=== PATIENT | female | born 1940 | race Caucasian/White ===

== ENCOUNTER 2017-07-16 12:48 | Inpatient (IN) | payer MEDICARE ==
[~2017-07-16] VITALS: Ht 157.5 cm; Wt 68.6 kg
[~2017-07-16 12:48] MED LIST: ACHYD1T PO; ALEN70TA2 PO; ALEN70TA47 PO; ASP81TEC PO; Acetaminophen PO; Aspirin PO; CARV3.122 PO; CEPH250C PO; CODE-54 PO; DOCU100C PO; ETHO250C PO; ETHO250C5 PO; HYDR-2890 PO; LISI20TA PO; OMEP-10 PO; OMEP20CA12 PO; PHOS250T5 PO; POLY17PO23 GT; RIVA10TA PO; SENN1TAB76 PO
--- OUTSIDE RECORDS SUMMARY | 2017-07-16 13:17 | XMS REPORT | Continuity of Care Document ---
Author Author [facility] Organization [facility] Address Unknown Phone Unavailable Allergies Active Description Code Type Severity Reaction Onset Reported/Identified Relationship to Patient Clinical Status Yes No Known Drug Allergies [id number] Drug Allergy Unknown N/A 12/30/2009 Yes bee stings bee stings Unknown N/A 05/18/2014 Medications There is no data. Problems Date Dx Coded Attending Type Code Diagnosis Diagnosed By 05/21/2014 SHERIN HARRY, DEYSI E Ot 273.8 05/21/2014 SHERIN HARRY, DEYSI E Ot 276.8 05/21/2014 SHERIN HARRY, DEYSI E Ot 285.9 05/21/2014 SHERIN HARRY, DEYSI E Ot 343.1 05/21/2014 SHERIN HARRY, DEYSI E Ot 401.9 05/21/2014 SHERIN HARRY, DEYSI E Ot 715.36 05/21/2014 SHERIN HARRY, DEYSI E Ot 733.00 05/21/2014 SHERIN HARRY, DEYSI E Ot 736.79 05/21/2014 SHERIN HARRY, DEYSI E Ot V54.89 05/21/2014 SHERIN HARRY, DEYSI E Ot V57.89 05/27/2014 SHERIN HARRY, DEYSI E Ot 273.8 05/27/2014 SHERIN HARRY, DEYSI E Ot 276.8 05/27/2014 SHERIN HARRY, DEYSI E Ot 285.9 05/27/2014 SHERIN HARRY, DEYSI E Ot 343.1 05/27/2014 SHERIN HARRY, DEYSI E Ot 401.9 05/27/2014 SHERIN HARRY, DEYSI E Ot 715.36 05/27/2014 SHERIN HARRY, DEYSI E Ot 733.00 05/27/2014 SHERIN HARRY, DEYSI E Ot 736.79 05/27/2014 SHERIN HARRY, DEYSI E Ot V54.89 05/27/2014 SHERIN HARRY, DEYSI E Ot V57.89 05/30/2014 SHERIN HARRY, DEYSI E Ot 273.8 05/30/2014 SHERIN HARRY, DEYSI E Ot 276.8 05/30/2014 SHERIN HARRY, DEYSI E Ot 285.9 05/30/2014 SHERIN HARRY, DEYSI E Ot 343.1 05/30/2014 SHERIN HARRY, DEYSI E Ot 401.9 05/30/2014 SHERIN HARRY, DEYSI E Ot 715.36 05/30/2014 SHERIN HARRY, DEYSI E Ot 729.81 05/30/2014 SHERIN HARRY, DEYSI E Ot 733.00 05/30/2014 SHERIN HARRY, DYESI E Ot 736.79 05/30/2014 SHERIN HARRY, DEYSI E Ot V54.89 05/30/2014 SHERIN HARRY, DEYSI E Ot V57.89 08/16/2014 SHERIN HARRY, DEYSI E Ot 138 08/16/2014 SHERIN HARRY, DEYSI E Ot 285.9 08/16/2014 SHERIN HARRY, DEYSI E Ot 343.9 08/16/2014 SHERIN HARRY, DEYSI E Ot 401.9 08/16/2014 SHERIN HARRY, DEYSI E Ot 728.87 08/16/2014 SHERIN HARRY, DEYSI E Ot 733.00 08/16/2014 SHERIN HARRY, DEYSI E Ot 736.81 08/16/2014 SHERIN HARRY, DEYSI E Ot 736.89 08/16/2014 SHERIN HARRY, DEYSI E Ot V43.65 08/16/2014 SHERIN HARRY, DEYSI E Ot V54.81 08/16/2014 SHERIN HARRY, DEYSI E Ot V57.89 09/02/2014 DE OLIVEIRA DO, TONNY W Ot V43.65 09/02/2014 DE OLIVEIRA DO, TONNY W Ot V54.81 09/02/2014 DE OLIVEIRA DO, TONNY W Ot V57.1 09/26/2014 DE OLIVEIRA DO, TONNY W Ot V43.65 09/26/2014 DE OLIVEIRA DO, TONNY W Ot V54.81 09/26/2014 DE OLIVEIRA DO, TONNY W Ot V57.1 Procedures There is no data. Results There is no data. Encounters ACCT No. Visit Date/Time Discharge Status Pt. Type Provider Facility Loc./Unit Complaint [id number] 09/26/2014 12:51:00 09/26/2014 14:36:00 DIS Outpatient DE OLIVEIRA DO, TONNY W [facility] REHAB [id number] 08/11/2014 15:13:00 08/16/2014 09:00:00 DIS Inpatient DEYSI DUFF MD [facility] IRF [id number] 05/18/2014 16:52:00 05/30/2014 10:30:00 DIS Inpatient DEYSI DUFF MD [facility] IRF [id number] 07/16/2017 12:48:00 ACT Inpatient DEYSI DUFF MD [facility] IRF RIGHT HIP FRACTURE
[2017-07-16 13:19] VITALS: BP 134/70
[2017-07-16] MEDS ORDERED: BETAMETHASONE/CLOTRIM CREAM (LOTRISONE) 45 GM TP PRN (13:30)
[2017-07-16 18:59] VITALS: BP 136/71
[2017-07-16] MEDS: ASPIRIN 325 MG (5 GR) TABLET PO SCH (21:32)
[2017-07-16] MEDS: SENNA W/DOCUSATE (SENOKOT S) TABLET PO SCH (21:33)
[2017-07-16] MEDS: MESALAMINE DR 400 MG (ASACOL/DELZICOL) TAB/CAPS PO SCH (21:34)
[2017-07-16] MEDS: HYDROcodone/APAP 5 MG/325 MG (LORTAB) TAB PO PRN (21:36)
[2017-07-17] MEDS ORDERED: ETHOSUXIMIDE 250 MG PO SCH (06:00)
[2017-07-17] MEDS: PANTOPRAZOLE 40 MG (PROTONIX) TAB PO SCH (06:04)
[2017-07-17 08:00] VITALS: BP 135/73
--- NOTE | 2017-07-17 08:22 | Consultation ---
History of Present Illness History of Present Illness Patient Consulted On(roni/time) 07/17/17 08:19 Time Seen by Provider: 08:20 History of Present Illness Patient fell at [facility] in the [facility]. Patient had a fracture of the right hip. Patient had right total hip surgery. Previous surgeries knee right, fracture femur the right hip previously Allergies and Home Medications Allergies Uncoded Allergies: bee stings (Allergy, Unknown, 05/18/14) Home Medications Docusate Sodium 100 Mg Capsule, 100 MG PO 1800, (Reported) Ethosuximide 250 Mg Capsule, 250 MG PO DAILY, (Reported) Hydrocodone Bit/Acetaminophen 1 Ea Tab, 1 EA PO Q4H PRN for PAIN Prescribed by: DEYSI DUFF on 08/15/14 1318 Lisinopril 20 Mg Tablet, 20 MG PO DAILY, (Reported) Omeprazole 20 Mg Capsule.dr, 20 MG PO DAILY, (Reported) Rivaroxaban 10 Mg Tablet, 10 MG PO DAILY@1800 Prescribed by: DEYSI DUFF on 08/15/14 1318 Senna 1 Ea Tablet, 1 EA PO BID Prescribed by: KERA HENSLEY on 08/11/14 210 [Acetaminophen] 500 MG TAB, 500 MG PO Q4H PRN for MILD PAIN Prescribed by: DEYSI DUFF on 08/15/14 1318 Patient Home Medication List Home Medication List Reviewed: Yes Past Bssxnhw-[id number]-Kaqkpp Hx Patient Social History Alcohol Use: Denies Use Recreational Drug Use: No Smoking Status: Never a Smoker Recent Foreign Travel: No Contact w/Someone Who Travel: No Recent Infectious Disease Expo: No Recent Hopitalizations: Yes ([place] TKR) Immunizations Up To Date PED Vaccines UTD: Yes Date of Pneumonia Vaccine: May 18, 2012 Date of Influenza Vaccine: Jan 22, 2017 Seasonal Allergies Seasonal Allergies: Yes Surgeries History of Surgeries: Yes Surgeries: Orthopedic Respiratory History of Respiratory Disorde: No Cardiovascular History of Cardiac Disorders: Yes (tachycardia occas) Neurological History of Neurological Disord: Yes Reproductive System : No Hx Reproductive Disorders: No Sexually Transmitted Disease: No HIV/AIDS: No Female Reproductive Disorders: Denies Genitourinary History of Genitourinary Disor: No Gastrointestinal History of Gastrointestinal Di: Yes (occasional constipation) Gastrointestinal Disorders: Abdominal Hernia, Gastroesophageal Reflux Musculoskeletal History of Musculoskeletal Dis: Yes Musculoskeletal Disorders: Arthritis, Fractures Endocrine History of Endocrine Disorders: No HEENT History of HEENT Disorders: Yes HEENT Disorders: Cataract Loss of Vision: Denies Hearing Impairment: Denies Cancer History of Cancer: No Psychosocial History of Psychiatric Problem: No Integumentary History of Skin or Integumenta: No Blood Transfusions History of Blood Disorders: No Family Medical History Family Medial History: Patient reports no known family medical history. Review of Systems-General Constitutional: no symptoms reported EENTM: no symptoms reported Respiratory: no symptoms reported Cardiovascular: no symptoms reported Gastrointestinal: no symptoms reported Genitourinary: no symptoms reported Physical Exam-General Problems Physical Exam Vital Signs Vital Signs - First Documented 07/16/17 13:19 Temp 97.9 Pulse 102 Resp 20 B/P (MAP) 134/70 (91) Pulse Ox 95 O2 Delivery Room Air Capillary Refill : Less Than 3 Seconds General Appearance: WD/WN, no apparent distress Eyes: Bilateral Eye Normal Inspection HEENT: normal ENT inspection Neck: full range of motion, normal inspection Respiratory: chest non-tender, lungs clear, normal breath sounds, no respiratory distress, no accessory muscle use Cardiovascular: regular rate, rhythm, no murmur Gastrointestinal: non tender, soft Assessment/Plan Assessment/Plan Admission Diagnosis/Plan Fractured right hip Clinical Quality Measures DVT/VTE Risk/Contraindication: Risk Factor Score Per Nursin RFS Level Per Nursing on Admit: 4+=Very High RUDY GOSS DO Jul 17, 2017 08:22
[2017-07-17] MEDS: lisINopril 20 MG (PRINIVIL) TABLET PO SCH (08:46)
[2017-07-17] MEDS: HYDROcodone/APAP 5 MG/325 MG (LORTAB) TAB PO PRN ×2 (08:46→22:11)
[2017-07-17] MEDS: ASPIRIN 325 MG (5 GR) TABLET PO SCH ×2 (08:46→19:39)
[2017-07-17] MEDS: SENNA W/DOCUSATE (SENOKOT S) TABLET PO SCH ×2 (08:46→19:39)
[2017-07-17] MEDS: MESALAMINE DR 400 MG (ASACOL/DELZICOL) TAB/CAPS PO SCH ×2 (08:50→19:39)
--- NOTE | 2017-07-17 09:37 | ST Cognitive Linguistic Eval ---
Speech Evaluation-General Medical Diagnosis Right Hip Fracture Therapy Diagnosis Therapy Diagnosis: Cognitive Linguistic Skills WNL Precautions Precautions/Isolations: Fall Prevention, Standard Precautions Referral Referring Physician: Dr. George Espinoza Reason for Referral: Evaluation/Treatment Cognitive Evaluation Medical History Pertinent Medical History: HTN Current History The patient was recently admitted to [facility] following a right hip fracture. Speech PLF-Current Status Prior Level of Function The patient denied prior or current challenges with speech, language, or cognition. Subjective The patient was seated upright in bed upon entrance. The patient greeted the clinician and was agreeable to participation in the cognitive evaluation. Language Eval: Auditory Comprehends Simple Yes/No Ques: Functional Indent/Objects Multiple Duque: Functional Ident/Pics in Multiple Duque: Functional Follows 1-Step Commands: Functional Follows Complex Directions: Functional Follows General Conversations: Functional Language Eval: Verbal Language Completes Spontaneous Greeting: Functional Produces Auto, Serial Info: Functional Imitates Simple Words/Phrases: Functional Word Finding: Functional Requests Basic Needs: Functional States Basic Personal Info: Functional Expresses Complex Ideas: Functional Cognitive Patient Orientation The patient is independently oriented to self, location, month, day of week, and year. Objective Cognitive Domain Attention: WNL Memory: WNL Problem Solving: Functional Objective Oral Motor/Speech Production The patient demonstrated slight imprecise articulation, however, remained 100% intelligible in known and unknown contexts. Impression The patient demonstrated cognitive linguistic skills WNL and appropriate for completion of ADL's. Communication/Social Cognition Comprehension: 6 Expression: 6 Social Interaction: 6 Problem Solvin Memory: 6 Speech Patient Assess Expression of Ideas/Wants: Expression (4) Understanding V[place]al Content: Understands (4) Brief Interview-Mental Status: Yes Repetition of Three Words: Three (3) Temporal Orientation: Year: Correct (3) Temporal Orientation: Month: Accurate within 5 days(2) Temporal Orientation: Day: Correct (1) Recall : Wear to say "Sock": Yes, no cue required (2) Recall : Color: Yes, no cue required (2) Recall : Bed: Yes, no cue required (2) Speech-Plan Treatment Plan Speech Therapy Treatment Plan: Discontinue ST Evaluation, only. Frequency: Modified Program (IRF) Estimated Hrs Per Day: Other Rehab Potential: Good Safety Risks/Education Teaching Recipient: Patient Teaching Methods: Discussion Response to Teaching: Verbalize Understanding Education Topics Provided: Results, Recommendations, Plan of Care Time Speech Therapy Time In: 09:00 Speech Therapy Time Out: 09:15 Total Billed Time: 15 Billed Treatment Time 1, GURJIT DELGADILLO Jul 17, 2017 09:37
--- NOTE | 2017-07-17 10:58 | Physical Therapy Evaluation ---
PT Evaluation-General Medical Diagnosis Admission Date Jul 16, 2017 at 12:48 Medical Diagnosis: Right Hip Fracture Onset Date: Jul 12, 2017 Therapy Diagnosis Therapy Diagnosis: impaired mobility, strength, endurane, balance Height/Weight Height (Feet): 5 Height (Inches): 2.00 Weight (Pounds): 150 Weight (Ounces): 0.0 Precautions Precautions/Isolations: Fall Prevention, Standard Precautions Weight Bear Status Right Lower Extremity: Right Weight Bearing/Tolerated Referral Physician: Alexis Reason for Referral: Evaluation/Treatment Medical History Pertinent Medical History: Arthritis, GERD, HTN Additional Medical History tachycardia, abdominal hernia, cataracts, right TKA, CP Current History Patient fell in the lobby at [facility] and had a right hip fracture. Patient also has cerebral palsy affecting right side. Reviewed History: Yes Social History Home: Single Level Current Living Status: Spouse Entry Into Home: Stairs With Railing PT Steps Into Home: 4 Patient states there is railing and her steps are made to be very short and easy to go up. Prior/Core FIM Prior Level of Function Functional [place] Measure 0=Not Assessed/NA 4=Minimal Assistance 1=Total Assistance 5=Supervision or Setup 2=Maximal Assistance 6=Modified [place] 3=Moderate Assistance 7=Complete [place] Bed Mobility: 7 Transfers (B,C,W/C) (FIM): 7 Gait: 7 Patient was using a right side AFO previously but not other assistive device. PT Evaluation-Current Subjective Patient in bed pre tx, agrees to PT, has no pain at rest. Patient has CP and has decreased function in her right arm and leg. Pt/Family Goals to be independent at home Objective Patient Orientation: Normal For Age ROM/Strength ROM Lower Extremities NT in RLE, LLE WNL Strenght Lower Extremities NT in RLE, LLE WNL Neuromuscular (Tone, Coordination, Reflexes) NT Sensory Vision: Functional Hearing: Functional Sensation Right Lower Extremit: Intact Sensation Left Lower Extremity: Intact Transfers Functional [place] Measure 0=Not Assessed/NA 4=Minimal Assistance 1=Total Assistance 5=Supervision or Setup 2=Maximal Assistance 6=Modified [place] 3=Moderate Assistance 7=Complete IndependenceIRFPAI Quality Coding Scale 6 Independent with activity with or without an assistive device 5 Patient requires set up or clean up by helper. Patient completes activity by themselves 4 Supervision or touching assist (CGA). [place] provide cues , steadying assist 3 The helper provides less than half the effort to complete the activity 2 The helper provides more than half the effort to complete the activity 1 Dependent. The helper does all the effort to complete an activity 7 Patient refused to complete or attempt activity 9 The patient did not perform the activity before the current illness or injury 88 Not attempted due to Medical conditions or safety concerns Transfers (B, C, W/C) (FIM): 4 Scootin Rollin Roll Left to Right (QC): 4 Supine to/from Sit: 4 Sit to/from Stand: 4 bed t/f WC(FIM only if WC use): 3 Sit to Lying (QC): 3 Lying to Sitting/Side of Bed(Q: 3 Sit to Stand (QC): 3 Chair/Iop-fa-Xufua Xfer(QC): 3 Car Transfer (QC): 3 Patient performs bed mobility with min assist (needs assist with right leg getting into and out of bed), sit to stand with min assist, transfers with min assist including car transfer. Cues for hand placement, especially with right arm which is weaker and has less ROM. Gait Does the Patient Walk?: Yes Mode of Locomotion: Walk Anticipated Mode of Locomotion: Walk Gait (FIM): 1 Walk 10 feet (QC): 4 Walk 50 ft with 2 Turns(QC): 88 Walk 150 ft (QC): 88 Walking 10ft/uneven surface-QC: 88 Distance: 20'x2 Gait Level of Assist: 4 Gait Persons Needed: 1 Gait Assistive Device: FWW Comments/Gait Description Wheelchair follow. Patient ambulated 20'x2 with min assist using a rolling walker. She has a good step through gait pattern but is very uncoordinated with her walker placement, probably due to her impaired right arm. She has occasional moments of retropulsion. Wheelchair Training Does the Pt Use a Wheelchair?: Yes Wheelchair (FIM): 2 Distance: 50' Wheelchair Level of Assist: 3 Wheel 50 ft with 2 turns (QC): 2 Type of Wheelchair: Manual Patient's left leg does not go to the floor so she only has her left arm to propel. Stairs If not tested on admit;explain Not attempted due to safety reasons. Patient's right arm will not support her effectively on the rail. Balance Sitting Static: Normal Sitting Dynamic: Normal Standing Static: Fair Standing Dynamic: Fair Picking up an Object (QC): 88 Treatment parallel bars exercises x10 (min-squats, left hamstring curls, hip abd/flex), LAQ alternating for 5 min Assessment/Needs Patient has impaired mobility, strength, endurance, ROM, balance, post right ANJALI. Rehab Potential: Fair PT Short Term Goals Short Term Goals Time Frame: Jul 24, 2017 Transfers (B,C,W/C) (FIM): 4 Gait (FIM): 2 Gait Distance Comment: 50' Gait Level of Assist: 4 Gait Assistive Device: FWW PT Property Technician Goals Property Technician Goals PT Property Technician Goals Time Frame: Aug 07, 2017 Transfers (B,C,W/C) (FIM): 5 Sit to Lying (QC): 4 Lying-Sitting on Side/Bed(QC): 4 Sit to Stand (QC): 4 Rollin Roll Left to Right (QC): 4 Chair/Jjb-gm-Miyms Xfer(QC): 4 Car Transfer (QC): 4 Gait (FIM): 5 Distance: 150' Walk 10 feet (QC): 4 Walk 10ft-Uneven Surface(QC): 4 Walk 50ft with 2 Turns (QC): 4 Walk 150 ft (QC): 4 Gait Level of Assist: 5 Stairs (FIM): 2 # of Steps: 4 1 Step (curb) (QC): 4 4 Steps (QC): 4 Stairs Level Of Assist: 4 PT Plan Problem List Problem List: Activity Tolerance, Functional Strength, Safety, Balance, Gait, Transfer, Bed Mobility, ROM Treatment/Plan Treatment Plan: Continue Plan of Care Treatment Plan: Bed Mobility, Education, Functional Activity Javan, Functional Strength, Group Therapy, Gait, Safety, Therapeutic Exercise, Transfers Treatment Duration: Aug 07, 2017 Frequency: At least 5 of 7 days/Wk (IRF) Estimated Hrs Per Day: 1.5 hours per day Patient and/or Family Agrees t: Yes Safety Risks/Education Patient Education: Gait Training, Transfer Techniques, Reviewed Precautions, Correct Positioning, W/C Management, Disease Process, Safety Issues Teaching Recipient: Patient Teaching Methods: Demonstration, Discussion Response to Teaching: Reinforcement Needed Discharge Recommendations Plan Patient will perform bed mobility and transfers, balance and endurance training , functional strengthening, stair training, gait training, and education, to improve functional mobility and independence at home. Therapy D/C Recommendations: Home w/ Family Support Time/GCodes Time In: 1000 Time Out: 1100 Total Billed Treatment Time: 60 Total Billed Treatment 1 visit EVM 30' FA 15' GT 15' YELITZA LUU PT Jul 17, 2017 10:58
[2017-07-17] MEDS: ACETAMINOPHEN 500 MG TAB (TYLENOL) PO PRN (12:45)
[2017-07-17] MEDS ORDERED: ETHO250C6 PO (13:26)
[2017-07-17] MEDS ORDERED: ASPI-983 PO (13:26)
[2017-07-17] MEDS ORDERED: MESA400C2 PO (13:26)
[2017-07-17] MEDS ORDERED: OMEP20CA12 PO (13:26)
[2017-07-17] MEDS ORDERED: LISI-552 PO (13:26)
[2017-07-17] MEDS ORDERED: ESTR0.5T VG (13:26)
[2017-07-17] MEDS ORDERED: ALEN70TA47 PO (13:26)
[2017-07-17] MEDS ORDERED: CLOT15CR6 TP (13:27)
--- NOTE | 2017-07-17 15:05 | Therapy Group Daily Note ---
Therapy Daily Group Note Patient Education Topic Home Safety Exercises LE Seated Exercise, UE Exercise Other/Notes Pt maneuvered w/c to therapy gym for OT/PT group. Group consisted of introductions (name, place living, favorite word), socialization, seated UE/LE exercises, home safety education and home safety jeopardy. Pt was able to appropriately introduce self and actively listened to peers. Pt listened to education and was able to answer questions about home safety. Pt described ways that she would use safety techniques in her home. Pt was able to answer questions on home safety jeopardy quiz. After group, pt maneuvered w/c to room by self with call light/phone in reach. All needs met in room. Start Time: 13:00 Stop Time: 14:10 Total Billed Treatment Time: 70 Total Billed Treatment 1,GRP MITRA HERNADEZ AUTOMATIC WINDER OPERATOR Jul 17, 2017 15:05
--- NOTE | 2017-07-17 15:41 | Occupational Therapy Eval ---
OT Evaluation-General/PLF Medical Diagnosis Admission Date Jul 16, 2017 at 12:48 Medical Diagnosis: Right Hip Fracture Onset Date: Jul 12, 2017 Therapy Diagnosis Therapy Diagnosis: Weakness, Decreased ADL skills Height/Weight Height (Feet): 5 Height (Inches): 2.00 Weight (Pounds): 150 Weight (Ounces): 0.0 Precautions Precautions/Isolations: Seizure, Fall Prevention, Standard Precautions Safety Interventions: None Weight Bear Status Weight Bearing Restriction: Weight Bearing/Tolerated Referral Physician: Alexis Referral Reason: Activity Tolerance, Self Care, Evaluation/Treatment, Strengthening/ROM Medical History Pertinent Medical History: Arthritis, GERD, HTN Additional Medical History ORIF distal femur fx, CP, osteoporosis, multiple sx right UE/LE secondary to CP. Current History Pt. fell and fx right hip. Received hip replacement. Reviewed History: Yes Social History Home: Single Level Current Living Status: Spouse Entry Into Home: Stairs With Railing Steps Into Home: 4 ADL-Prior Level of Function ADL PLOF Comments Pt. states that she was independent with basic ADLs, and had been walking with no assistive devices. DME/Equipment: Bath Bench, Tub/Shower DME/Equipment Comments Pt. has a walker, wheelchair, toilet riser, cane. OT Current Status Subjective No pain reported. Appearance Pt. up in wheelchair. Agrees to treatment. Mental Status/Objective Patient Orientation: Person, Place, Time, Situation Current Glasses/Contacts: Yes Upper Extremity ROM Pt. has limited ROM in right UE from CP. Left UE WFL. ADL-Treatment Functional [place] Measure 0=Not Assessed/NA 4=Minimal Assistance 1=Total Assistance 5=Supervision or Setup 2=Maximal Assistance 6=Modified [place] 3=Moderate Assistance 7=Complete IndependenceIRFPAI Quality Coding Scale 6 Independent with activity with or without an assistive device 5 Patient requires set up or clean up by helper. Patient completes activity by themselves 4 Supervision or touching assist (CGA). [place] provide cues , steadying assist 3 The helper provides less than half the effort to complete the activity 2 The helper provides more than half the effort to complete the activity 1 Dependent. The helper does all the effort to complete an activity 7 Patient refused to complete or attempt activity 9 The patient did not perform the activity before the current illness or injury 88 Not attempted due to Medical conditions or safety concerns Grooming (FIM): 5 (Set up to brush teeth and hair.) Oral Hygiene (QC): 4 Bathing (FIM): 3 (Pt. is able to wash upper torso, arms, and front vikash area in stance with assist for balance. OT washes her rear vikash area and bilateral LE.) Shower/Bathe Self (QC): 3 Upper Body Dressing (FIM): 5 Upper Body Dressing (QC): 4 Lower Body Dressing (FIM): 2 (Max assist due to hip precautions) Lower Body Dressing (QC): 2 On/Off Footwear (QC): 2 Toileting (FIM): 4 (CGA in stance.) Toileting Hygiene (QC): 4 Transfers (B, C, W/C) (FIM): 3 (Mod assist sit-stand and transfer to bed.) Toilet/Commode Transfer (FIM): 4 Toilet Transfer (QC): 4 Education OT Patient Education: Correct positioning, Exercise program, Modified ADL techniques, Progress toward Goal/Update tx plan, Purpose of tx/functional activities, Reviewed precautions, Rehab process, Transfer techniques Teaching Recipient: Patient Teaching Methods: Demonstration Response to Teaching: Verbalize Understanding, Return Demonstration OT Short Term Goals Short Term Goals Time Frame: Jul 24, 2017 Eating(FIM): 6 Grooming(FIM): 5 Bathing(FIM): 4 Upper Body Dressing(FIM): 5 Lower Body Dressing(FIM): 4 Toileting(FIM): 5 Transfers (B,C,W/C) (FIM): 5 Toilet/Commode Transfer(FIM): 5 Shower Transfer(FIM): 4 Additional Short Term Goals: 1-Demonstrate ADL Tasks, 2-Verbalize Understanding , 3-ImproveStrength/Javan 1=Demonstrate adherence to instructed precautions during ADL tasks. 2=Patient will verbalize/demonstrate understanding of assistive devices/ modifications for ADL. 3=Patient will improve strength/tolerance for activity to enable patient to perform ADL's. OT Tool Mechanic Goals Long-Term Goals Time Frame: Jul 31, 2017 Eating (FIM): 6 Eating (QC): 6 Groomin Oral Hygiene (QC): 6 Bathing(FIM): 5 Shower/Bathe Self (QC): 5 Upper Body Dressing(FIM): 6 Upper Body Dressing (QC): 6 Lower Body Dressing(FIM): 6 Lower Body Dressing (QC): 6 On/Off Footwear (QC): 6 Toileting(FIM): 6 Toileting Hygiene (QC): 6 Transfers (B,C,W/C) (FIM): 6 Toilet/Commode Transfer(FIM): 6 Toilet/Commode Transfer (QC): 6 Shower Transfer(FIM): 5 Additional Goals: 1-Demonstrate ADL Tasks, 2-Verbalize Understanding, 3- ImproveStrength/Javan 1=Demonstrate adherence to instructed precautions during ADL tasks. 2=Patient will verbalize/demonstrate understanding of assistive devices/ modifications for ADL. 3=Patient will improve strength/tolerance for activity to enable patient to perform ADL's. OT Education/Plan Problem List/Assessment Assessment: Decreased Activ Tolerance, Dependent Transfers, Impaired Bed Mobility, Impaired Funct Balance, Impaired I ADL's, Impaired Self-Care Skills Discharge Recommendations Plan/Recommendations: Continue POC Therapy D/C Recommendations: Home w/ Family Support, Occupational Therapy Home Care Equpiment Recommendations-D/C: Hip Kit Target Placement Home with spouse and family. Treatment Plan/Plan of Care Treatment,Training & Education: Yes Patient would benefit from OT for education, treatment and training to promote independence in ADL's, mobility, safety and/or upper extremity function for ADL' s. Plan of Care: ADL Retraining, Functional Mobility, UE Funct Exercise/Act Treatment Duration: Jul 31, 2017 Frequency: At least 5 of 7 days/Wk (IRF) Estimated Hrs Per Day: 1.5 hours per day Agreement: Yes Rehab Potential: Fair Time/GCodes Start Time: 11:00 Stop Time: 12:00 Total Time Billed (hr/min): 60 Billed Treatment Time 1, EVM x 15minutes, ADL x 45minutes MONTY JIMENEZ OT Jul 17, 2017 15:41
--- NOTE | 2017-07-17 18:49 | PM&R Post Admission Assessment ---
Post Admission Physician Asses The preadmission screen agrees with the post admission assessment that the patient is a good candidate for inpatient rehabilitation. The patient will have a comprehensive program of inpatient rehabilitation with a goal of maximizing level of functional independence prior to discharge home with spouse and HHC The patient will have PT/OT ninety minutes per day, each discipline, five days a week for gait, strengthening, conditioning, balance, ADLs, any patient/family/caregiver training as necessary. Speech therapy to do cognitive assessment and treat as indicated. Rehabilitation nursing to assist with bowel, bladder, skin, wound care, medication administration, pain management. Market Analyst to assist with discharge planning, community reentry. SCD's for DVT prophylaxis. She appears to be well motivated to participate in three hours of therapy a day. She should be able to tolerate three hours of therapy a day from a medical and surgical standpoint. She should benefit from the three hours of therapy a day. She has a reasonable discharge plan, reasonable discharge rehabilitation goals and a supportive family. She has various comorbidities that need to be closely monitored with medications and treatments adjusted on a daily basis as needed. These include: Mild CP since affecting rt side has AFO HTN GERD DJD rt knee Barriers to discharge for this patient who had been independent prior to this are for her to be modified independent to supervision for ADLs and mobility skills prior to discharge home with spouse and HHC, so as to lessen the burden of the caregivers. Risks for this patient include: 1. Fall 2. Fracture 3. DVT 4. Pulmonary embolism 5. Wound infection 6. Skin breakdown 7. Contractures 8. Poorly controlled pain 9. Urinary retention 10. UTI 11. Respiratory infection 12. Aspiration 13. Poorly controlled HTN Estimated Length of Stay: 14 days Prognosis: Rehab prognosis appears good for goal of discharge home with spouse with HHC modified independent to supervision for ADLs and mobility skills. [facility] CODE 08.51 Etiologic DX RT HIP Fracture DEYSI DUFF MD Jul 17, 2017 18:49
[2017-07-17 18:55] VITALS: BP 128/71
--- NOTE | 2017-07-17 19:32 | HISTORY AND PHYSICAL ---
DATE OF SERVICE: CHIEF COMPLAINT: Difficulty with walking. 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 She sustained a right hip fracture. She had been independent prior to this. She does have a history of mild CP since as well as hypertension. On 07/12/2017, she underwent right total hip arthroplasty at outside facility and is referred here for ongoing inpatient rehabilitation. She lives in [place], [place], with her spouse. Her PCP is Dr. Franco. Currently, she requires assistance for her ADLs and mobility skills. She is mod assist for transfers, min assist for gait with a front wheel walker. She is set up for grooming modified independent for eating, mod assist for bathing, setup for upper body dressing, max assist for lower body dressing, min assist for toilet transfers. Speech therapy has found to be cognitively intact. She is utilizing hydrocodone for pain control. PAST MEDICAL HISTORY: As per above. Hypertension, cerebral palsy since with mild right-sided weakness, wears an AFO on the right, arthritis, GERD, hypertension, cataracts, seasonal allergies, sleep apnea, hiatal hernia, DJD of the right knee. She was on the unit in the past following her total knee replacement and did well. PAST SURGICAL HISTORY: As per above. ALLERGIES: No known medication allergies. FAMILY HISTORY: Noncontributory. SOCIAL HISTORY: Essentially as per above. REVIEW OF SYSTEMS: Ten point review of systems significant for hip pain, right foot drop, arthritic pain. MEDICATIONS: Fosamax 70 mg every Monday, Estrace 0.5 mg p.o. on Monday and Monday at bedtime, Neurontin 250 mg p.o. daily, Tylenol 500 mg p.o. q.6 hours p.r.n. mild pain, Zestril 20 mg p.o. daily, Protonix 40 mg p.o. daily, ASA 325 mg p.o. b.i.d. for DVT prophylaxis, Senokot-S 1 tablet p.o. b.i.d., mesalamine 800 mg p.o. b.i.d., Lortab generic 5 one tablet p.o. q.6 hours p.r.n. moderate pain, Lotrisone cream apply sparingly to affected area daily p.r.n. PHYSICAL EXAMINATION: GENERAL: Significant for a female appearing her stated age, alert and oriented, no acute distress, lying in bed. VITAL SIGNS: Her BMI is 27.4, weight 68 kg. She is afebrile, pulse is 101, respirations 20, blood pressure 135/73, O2 sat 94% on room air. HEENT: Vision, speech, hearing grossly intact. No oral lesion is noted. NECK: Supple without mass. HEART: Regular rhythm. CHEST: Clear. ABDOMEN: Soft, nontender, bowel sounds present. EXTREMITIES: No lower leg edema, no calf tenderness. MUSCULOSKELETAL: The patient has limited active range of motion in right upper limb from cerebral palsy. She has functional strength left more than right. She has functional active range of motion and strength in left lower extremity. Right lower extremity limited due to effects of cerebral palsy and right hip fracture and repair. ASSESSMENT: 1. Ambulatory dysfunction status post fall with resulting right hip fracture status post ORIF right hip fracture at [facility] in [place], [place]. 2. Cerebral palsy affecting the right side. 3. Osteoarthritis, status post right total knee replacement. 4. Hypertension, controlled with medication. 5. Gastroesophageal reflux disease, on medication. PLAN: The patient will have comprehensive program with inpatient rehabilitation with goal of maximizing level of functional independence prior to discharge home with her spouse hopefully modified Independent to supervision for ADLs and mobility skills. Please see details of therapy plan in post-admission physician evaluation, which is a separate document. Speech therapy has seen the patient, assessed and found her to be cognitively intact and they have signed off at this time. Rehabilitation nursing to assist with bowel, bladder, skin, wound care, medication administration, pain management and social worker delinquency prevention with discharge planning, community reentry, therapy with cardiac and fall precautions. Follow up with orthopedics upon discharge. We will ask Dr. Ellison to follow along for any medical concerns as well while on rehab unit as PCP does not attend here. ESTIMATED LENGTH OF STAY: 14 days. PROGNOSIS: Rehab prognosis appears good for goals of discharging home with spouse, modified independent to supervision for ADLs and mobility skills. DIET: Regular. CODE STATUS: Full code. Job ID: [id number] DocumentID: [id number] Dictated Date: 07/17/2017 18:59:20 Community Organization Director Date: 07/17/2017 19:31:21 Dictated By: DEYSI DUFF MD MTDD
[2017-07-18 05:44] VITALS: BP 136/82
[2017-07-18] MEDS: PANTOPRAZOLE 40 MG (PROTONIX) TAB PO SCH (05:53)
[2017-07-18] MEDS: ETHOSUXIMIDE 250 MG PO SCH (05:55)
[2017-07-18] MEDS: lisINopril 20 MG (PRINIVIL) TABLET PO SCH (08:15)
[2017-07-18] MEDS: ASPIRIN 325 MG (5 GR) TABLET PO SCH ×2 (08:15→20:26)
[2017-07-18] MEDS: SENNA W/DOCUSATE (SENOKOT S) TABLET PO SCH ×2 (08:15→20:26)
[2017-07-18] MEDS: MESALAMINE DR 400 MG (ASACOL/DELZICOL) TAB/CAPS PO SCH ×2 (08:15→20:26)
[2017-07-18] MEDS: HYDROcodone/APAP 5 MG/325 MG (LORTAB) TAB PO PRN (08:15)
--- NOTE | 2017-07-18 08:22 | Progress Note (SOAP) ---
Subjective Time Seen by Provider: 08:20 Subjective/Events-last exam Patient feeling good. Patient getting around with a walker. Patient improving. Patient has no complaints Objective Exam Vital Signs Date Time Temp Pulse Resp B/P (MAP) Pulse Ox O2 Delivery O2 Flow Rate FiO2 07/18/17 05:44 98.1 100 18 136/82 (100) 93 Room Air 07/17/17 18:55 98.2 98 18 128/71 (90) 94 Room Air I & O 07/18/17 07:00 Intake Total 980 ml Balance 980 ml Capillary Refill : Less Than 3 Seconds General Appearance: No Apparent Distress, WD/WN Assessment/Plan Assessment/Plan Assess & Plan/Chief Complaint Fractured right hip. . 07/18/17. Fractured right hip. Patient moving better Clinical Quality Measures DVT/VTE Risk/Contraindication: Risk Factor Score Per Nursin RFS Level Per Nursing on Admit: 4+=Very High RUDY GOSS DO Jul 18, 2017 08:22
--- NOTE | 2017-07-18 08:29 | PM & R (SOAP) Progress Note ---
Subjective Time Seen by Provider: 07:50 Subjective/Events-last exam Patient was seen in her room this AM Patient mod assist for transfers Using Tylenol for pain Slept well Review of Systems Musculoskeletal: leg pain Objective Exam Last Set of Vital Signs Vital Signs Date Time Temp Pulse Resp B/P (MAP) Pulse Ox O2 Delivery O2 Flow Rate FiO2 07/18/17 05:44 98.1 100 18 136/82 (100) 93 Room Air Capillary Refill : Less Than 3 Seconds I&O Intake and Output 07/18/17 00:00 Intake Total 1130 ml Balance 1130 ml Intake Oral 1130 ml # Voids 5 # Bowel Movements 2 General: Alert, Oriented X3, Cooperative, No Acute Distress HEENT: Atraumatic, PERRLA, EOMI, Mucous Memb Moist/[place] Neck: Supple, No JVD Lungs: Clear to Auscultation Heart: Regular Rate Abdomen: Normal Bowel Sounds, Soft, No Tenderness Extremities: No Edema Neuro: Other (RT sided weaknes and at left hip Incision healing well) Assessment/Plan Assessment left Hip frx s/p fall s/p ORIF OSH WBAT CP affecting the rt side OA s/p Rt TKR in past HTN controlled with meds GERD on meds Plan Continue PT/OT/Pain management Team Conference tomorrow 07-19-17 DEYSI DUFF MD Jul 18, 2017 08:29
--- NOTE | 2017-07-18 08:56 | Physical Therapy Daily Note ---
PT Daily Note-Current Subjective Patient in bed pre tx, agrees to PT. Has 3/10 pain in right hip, wants pain meds, nurse notified. Appearance Patient in wheelchair at bedside post tx with nurse call, tray, family in the room. Mental Status Patient Orientation: Person, Place, Situation Transfers Functional [place] Measure 0=Not Assessed/NA 4=Minimal Assistance 1=Total Assistance 5=Supervision or Setup 2=Maximal Assistance 6=Modified [place] 3=Moderate Assistance 7=Complete IndependenceIRFPAI Quality Coding Scale 6 Independent with activity with or without an assistive device 5 Patient requires set up or clean up by helper. Patient completes activity by themselves 4 Supervision or touching assist (CGA). [place] provide cues , steadying assist 3 The helper provides less than half the effort to complete the activity 2 The helper provides more than half the effort to complete the activity 1 Dependent. The helper does all the effort to complete an activity 7 Patient refused to complete or attempt activity 9 The patient did not perform the activity before the current illness or injury 88 Not attempted due to Medical conditions or safety concerns Transfers (B, C, W/C) (FIM): 4 Scootin Rollin Supine to/from Sit: 4 Sit to/from Stand: 4 Bed to/from Chair: 4 Min assist with right leg going from supine to sit. Sit to stand and stand pivot CGA this morning. Weight Bearing Right Lower Extremity: Right Weight Bearing/Tolerated Gait Training Gait (FIM): 1 Distance: 20'x4 Gait Level of Assist: 4 Gait Persons Needed: 1 Gait Assistive Device: FWW Uses right AFO, slow, antalgic, good step through. Exercises Supine Ex: Ankle pumps, Quad Set, Glut sets, Heel Slides, Short Arc Quads, Straight leg raise, Hip abd/add Supine Reps: 10 LAQ right side for 5 min Treatments bed mobility and transfers, ambulation, functional strengthening Assessment Current Status: Fair Progress improved transfers and endurance PT Short Term Goals Short Term Goals Time Frame: Jul 24, 2017 Transfers (B,C,W/C) (FIM): 5 Gait (FIM): 2 Gait Distance Comment: 50' Gait Level of Assist: 4 Gait Assistive Device: FWW Wheelchair Distance: 50' PT Penitentiary Goals Paediatric Physiotherapist Goals PT Paediatric Physiotherapist Goals Time Frame: Aug 07, 2017 Transfers (B,C,W/C) (FIM): 5 Sit to Lying (QC): 4 Lying-Sitting on Side/Bed(QC): 4 Sit to Stand (QC): 4 Rollin Roll Left to Right (QC): 4 Chair/Wli-if-Lphni Xfer(QC): 4 Car Transfer (QC): 4 Gait (FIM): 5 Distance: 150' Walk 10 feet (QC): 4 Walk 10ft-Uneven Surface(QC): 4 Walk 50ft with 2 Turns (QC): 4 Walk 150 ft (QC): 4 Gait Level of Assist: 5 Stairs (FIM): 2 # of Steps: 4 1 Step (curb) (QC): 4 4 Steps (QC): 4 Stairs Level Of Assist: 4 PT Plan Problem List Problem List: Activity Tolerance, Functional Strength, Safety, Balance, Gait, Transfer, Bed Mobility, ROM Treatment/Plan Treatment Plan: Continue Plan of Care Treatment Plan: Bed Mobility, Education, Functional Activity Javan, Functional Strength, Group Therapy, Gait, Safety, Therapeutic Exercise, Transfers Treatment Duration: Aug 07, 2017 Frequency: At least 5 of 7 days/Wk (IRF) Estimated Hrs Per Day: 1.5 hours per day Patient and/or Family Agrees t: Yes Safety Risks/Education Patient Education: Gait Training, Transfer Techniques, Reviewed Precautions, Correct Positioning, W/C Management, Reviewed Don/Doff Brace, Safety Issues Teaching Recipient: Patient Teaching Methods: Demonstration, Discussion Response to Teaching: Reinforcement Needed Time/GCodes Time In: 800 Time Out: 900 Total Billed Treatment Time: 60 Total Billed Treatment 1 visit GT 30' EX 20' FA 10' YELITZA LUU PT Jul 18, 2017 08:56
--- NOTE | 2017-07-18 10:43 | Occupational Ther Daily Note ---
OT Current Status-Daily Note Subjective No pain reported. Appearance Pt. up in chair. Agrees to shower. Mental Status/Objective Patient Orientation: Person, Place, Time, Situation Functional [place] Measure 0=Not Assessed/NA 4=Minimal Assistance 1=Total Assistance 5=Supervision or Setup 2=Maximal Assistance 6=Modified [place] 3=Moderate Assistance 7=Complete [place] ADL-Treatment Functional [place] Measure 0=Not Assessed/NA 4=Minimal Assistance 1=Total Assistance 5=Supervision or Setup 2=Maximal Assistance 6=Modified [place] 3=Moderate Assistance 7=Complete IndependenceIRFPAI Quality Coding Scale 6 Independent with activity with or without an assistive device 5 Patient requires set up or clean up by helper. Patient completes activity by themselves 4 Supervision or touching assist (CGA). [place] provide cues , steadying assist 3 The helper provides less than half the effort to complete the activity 2 The helper provides more than half the effort to complete the activity 1 Dependent. The helper does all the effort to complete an activity 7 Patient refused to complete or attempt activity 9 The patient did not perform the activity before the current illness or injury 88 Not attempted due to Medical conditions or safety concerns Bathing (FIM): 3 (LH sponge not available. Pt. required assist to wash bilateral feet and rear vikash area. Pt. able to lean to side while on tub transfer bench.) Shower/Bathe Self (QC): 3 Upper Body (FIM): 5 Upper Body Dressing (QC): 4 Lower Body Dressing (FIM): 2 (AE issued today. OT doff/dons shoes and AFO, as well as NIKKI hose. Pt. is able to doff socks with DS. Pt. is able to don socks with max assist using sock aide. Pt. then requires assist to don AFO and shoes. ) Lower Body Dressing (QC): 2 On/Off Footwear (QC): 2 Transfers (B, C, W/C) (FIM): 4 (Pt. requires min assist for sit-stand.) Shower Transfer(FIM): 4 (Min assist required to transfer into tub onto tub transfer bench.) Other Treatment Pt. is able to remember and follow hip precautions. Education OT Patient Education: Correct positioning, Modified ADL techniques, Progress toward Goal/Update tx plan, Purpose of tx/functional activities, Reviewed precautions, Rehab process, Transfer techniques, Use of adapted equipment Teaching Recipient: Patient Teaching Methods: Demonstration Response to Teaching: Verbalize Understanding, Return Demonstration OT Short Term Goals Short Term Goals Time Frame: Jul 24, 2017 Eating(FIM): 6 Grooming(FIM): 5 Bathing(FIM): 4 Upper Body Dressing(FIM): 5 Lower Body Dressing(FIM): 4 Toileting(FIM): 5 Transfers (B,C,W/C) (FIM): 5 Toilet/Commode Transfer(FIM): 5 Shower Transfer(FIM): 4 Additional Short Term Goals: 1-Demonstrate ADL Tasks, 2-Verbalize Understanding , 3-ImproveStrength/Javan 1=Demonstrate adherence to instructed precautions during ADL tasks. 2=Patient will verbalize/demonstrate understanding of assistive devices/ modifications for ADL. 3=Patient will improve strength/tolerance for activity to enable patient to perform ADL's. OT Manager Telemetry Goals Manager Telemetry Goals Time Frame: Jul 31, 2017 Eating (FIM): 6 Eating (QC): 6 Groomin Oral Hygiene (QC): 6 Bathing(FIM): 5 Shower/Bathe Self (QC): 5 Upper Body Dressing(FIM): 6 Upper Body Dressing (QC): 6 Lower Body Dressing(FIM): 6 Lower Body Dressing (QC): 6 On/Off Footwear (QC): 6 Toileting(FIM): 6 Toileting Hygiene (QC): 6 Transfers (B,C,W/C) (FIM): 6 Toilet/Commode Transfer(FIM): 6 Toilet/Commode Transfer (QC): 6 Shower Transfer(FIM): 5 Additional Goals: 1-Demonstrate ADL Tasks, 2-Verbalize Understanding, 3- ImproveStrength/Javan 1=Demonstrate adherence to instructed precautions during ADL tasks. 2=Patient will verbalize/demonstrate understanding of assistive devices/ modifications for ADL. 3=Patient will improve strength/tolerance for activity to enable patient to perform ADL's. OT Education/Plan Problem List/Assessment Assessment: Decreased Activ Tolerance, Dependent Transfers, Impaired Bed Mobility, Impaired I ADL's, Impaired Self-Care Skills Discharge Recommendations Plan/Recommendations: Continue POC Therapy D/C Recommendations: Home w/ Family Support, Occupational Therapy Home Care Equpiment Recommendations-D/C: Hip Kit Target Placement Home with family support. Treatment Plan/Plan of Care Treatment,Training & Education: Yes Patient would benefit from OT for education, treatment and training to promote independence in ADL's, mobility, safety and/or upper extremity function for ADL' s. Plan of Care: ADL Retraining, Functional Mobility, UE Funct Exercise/Act Treatment Duration: Jul 31, 2017 Frequency: At least 5 of 7 days/Wk (IRF) Estimated Hrs Per Day: 1.5 hours per day Agreement: Yes Rehab Potential: Good Time/GCodes Start Time: 09:30 Stop Time: 10:30 Total Time Billed (hr/min): 60 Billed Treatment Time 1, ADL x 4 MONTY JIMENEZ OT Jul 18, 2017 10:43
[2017-07-18] MEDS: ACETAMINOPHEN 500 MG TAB (TYLENOL) PO PRN ×2 (14:19→22:06)
--- NOTE | 2017-07-18 14:28 | Occupational Ther Daily Note ---
OT Current Status-Daily Note Subjective No pain reported. Appearance Pt. agreeable to treatment. Mental Status/Objective Patient Orientation: Person, Place Functional [place] Measure 0=Not Assessed/NA 4=Minimal Assistance 1=Total Assistance 5=Supervision or Setup 2=Maximal Assistance 6=Modified [place] 3=Moderate Assistance 7=Complete [place] ADL-Treatment Functional [place] Measure 0=Not Assessed/NA 4=Minimal Assistance 1=Total Assistance 5=Supervision or Setup 2=Maximal Assistance 6=Modified [place] 3=Moderate Assistance 7=Complete IndependenceIRFPAI Quality Coding Scale 6 Independent with activity with or without an assistive device 5 Patient requires set up or clean up by helper. Patient completes activity by themselves 4 Supervision or touching assist (CGA). [place] provide cues , steadying assist 3 The helper provides less than half the effort to complete the activity 2 The helper provides more than half the effort to complete the activity 1 Dependent. The helper does all the effort to complete an activity 7 Patient refused to complete or attempt activity 9 The patient did not perform the activity before the current illness or injury 88 Not attempted due to Medical conditions or safety concerns Grooming (FIM): 4 (CGA in stance to brush teeth at sink.) Oral Hygiene (QC): 4 Toileting (FIM): 4 (CGA in stance to pull up/down underwear.) Toileting Hygiene (QC): 4 Transfers (B, C, W/C) (FIM): 4 Toilet/Commode Transfer (FIM): 4 Toilet Transfer (QC): 4 Other Treatment OT put elastic laces into shoes this date. Pt. practiced this with AE. Overall , pt. able to don left shoe with min assist, but unable to fully don right shoe due to AFO. Will continue to practice this. Education OT Patient Education: Correct positioning, Modified ADL techniques, Progress toward Goal/Update tx plan, Purpose of tx/functional activities, Reviewed precautions, Rehab process, Transfer techniques, Use of adapted equipment Teaching Recipient: Patient Teaching Methods: Demonstration, Discussion Response to Teaching: Verbalize Understanding, Return Demonstration OT Short Term Goals Short Term Goals Time Frame: Jul 24, 2017 Eating(FIM): 6 Grooming(FIM): 5 Bathing(FIM): 4 Upper Body Dressing(FIM): 5 Lower Body Dressing(FIM): 4 Toileting(FIM): 5 Transfers (B,C,W/C) (FIM): 5 Toilet/Commode Transfer(FIM): 5 Shower Transfer(FIM): 4 Additional Short Term Goals: 1-Demonstrate ADL Tasks, 2-Verbalize Understanding , 3-ImproveStrength/Javan 1=Demonstrate adherence to instructed precautions during ADL tasks. 2=Patient will verbalize/demonstrate understanding of assistive devices/ modifications for ADL. 3=Patient will improve strength/tolerance for activity to enable patient to perform ADL's. OT Application Security Consultant Goals Application Security Consultant Goals Time Frame: Jul 31, 2017 Eating (FIM): 6 Eating (QC): 6 Groomin Oral Hygiene (QC): 6 Bathing(FIM): 5 Shower/Bathe Self (QC): 5 Upper Body Dressing(FIM): 6 Upper Body Dressing (QC): 6 Lower Body Dressing(FIM): 6 Lower Body Dressing (QC): 6 On/Off Footwear (QC): 6 Toileting(FIM): 6 Toileting Hygiene (QC): 6 Transfers (B,C,W/C) (FIM): 6 Toilet/Commode Transfer(FIM): 6 Toilet/Commode Transfer (QC): 6 Shower Transfer(FIM): 5 Additional Goals: 1-Demonstrate ADL Tasks, 2-Verbalize Understanding, 3- ImproveStrength/Javan 1=Demonstrate adherence to instructed precautions during ADL tasks. 2=Patient will verbalize/demonstrate understanding of assistive devices/ modifications for ADL. 3=Patient will improve strength/tolerance for activity to enable patient to perform ADL's. OT Education/Plan Problem List/Assessment Assessment: Decreased Activ Tolerance, Decreased UE Strength, Dependent Transfers, Impaired Bed Mobility, Impaired Funct Balance, Impaired I ADL's, Impaired Self-Care Skills, Restricted Funct UE ROM Discharge Recommendations Plan/Recommendations: Continue POC Therapy D/C Recommendations: Home w/ Family Support, Occupational Therapy Home Care Equpiment Recommendations-D/C: Hip Kit Treatment Plan/Plan of Care Treatment,Training & Education: Yes Patient would benefit from OT for education, treatment and training to promote independence in ADL's, mobility, safety and/or upper extremity function for ADL' s. Plan of Care: ADL Retraining, Functional Mobility, UE Funct Exercise/Act Treatment Duration: Jul 31, 2017 Frequency: At least 5 of 7 days/Wk (IRF) Estimated Hrs Per Day: 1.5 hours per day Agreement: Yes Rehab Potential: Good Time/GCodes Start Time: 13:00 Stop Time: 13:30 Total Time Billed (hr/min): 30 Billed Treatment Time 1, ADL x 2 MONTY JIMENEZ OT Jul 18, 2017 14:28
--- NOTE | 2017-07-18 14:46 | Physical Therapy Daily Note ---
PT Daily Note-Current Subjective Patient in bed pre tx, agrees to PT, has pain of 4/10, nurse notified and she got pain med. Appearance Patient BTB post tx with nurse call, phone, tray, all needs met. Mental Status Patient Orientation: Person, Place, Situation Transfers Functional [place] Measure 0=Not Assessed/NA 4=Minimal Assistance 1=Total Assistance 5=Supervision or Setup 2=Maximal Assistance 6=Modified [place] 3=Moderate Assistance 7=Complete IndependenceIRFPAI Quality Coding Scale 6 Independent with activity with or without an assistive device 5 Patient requires set up or clean up by helper. Patient completes activity by themselves 4 Supervision or touching assist (CGA). [place] provide cues , steadying assist 3 The helper provides less than half the effort to complete the activity 2 The helper provides more than half the effort to complete the activity 1 Dependent. The helper does all the effort to complete an activity 7 Patient refused to complete or attempt activity 9 The patient did not perform the activity before the current illness or injury 88 Not attempted due to Medical conditions or safety concerns Transfers (B, C, W/C) (FIM): 4 Scootin Rollin Supine to/from Sit: 4 (min assist with right leg to sit and lay down) Sit to/from Stand: 4 Bed to/from Chair: 4 Weight Bearing Right Lower Extremity: Right Weight Bearing/Tolerated Gait Training Gait (FIM): 2 Distance: 100, 20'x2 Gait Level of Assist: 4 Gait Persons Needed: 1 Gait Assistive Device: FWW left AFO, slow, antalgic, good step through Treatments bed mobility and transfers, ambulation Assessment Current Status: Fair Progress improved endurance and ambulation PT Short Term Goals Short Term Goals Time Frame: Jul 24, 2017 Transfers (B,C,W/C) (FIM): 5 Gait (FIM): 2 Gait Distance Comment: 50' Gait Level of Assist: 4 Gait Assistive Device: FWW Wheelchair Distance: 50' PT [facility] Goals [facility] Goals PT [facility] Goals Time Frame: Aug 07, 2017 Transfers (B,C,W/C) (FIM): 5 Sit to Lying (QC): 4 Lying-Sitting on Side/Bed(QC): 4 Sit to Stand (QC): 4 Rollin Roll Left to Right (QC): 4 Chair/Caj-ci-Gouwl Xfer(QC): 4 Car Transfer (QC): 4 Gait (FIM): 5 Distance: 150' Walk 10 feet (QC): 4 Walk 10ft-Uneven Surface(QC): 4 Walk 50ft with 2 Turns (QC): 4 Walk 150 ft (QC): 4 Gait Level of Assist: 5 Stairs (FIM): 2 # of Steps: 4 1 Step (curb) (QC): 4 4 Steps (QC): 4 Stairs Level Of Assist: 4 PT Plan Problem List Problem List: Activity Tolerance, Functional Strength, Safety, Balance, Gait, Transfer, Bed Mobility, ROM Treatment/Plan Treatment Plan: Continue Plan of Care Treatment Plan: Bed Mobility, Education, Functional Activity Javan, Functional Strength, Group Therapy, Gait, Safety, Therapeutic Exercise, Transfers Treatment Duration: Aug 07, 2017 Frequency: At least 5 of 7 days/Wk (IRF) Estimated Hrs Per Day: 1.5 hours per day Patient and/or Family Agrees t: Yes Safety Risks/Education Patient Education: Gait Training, Transfer Techniques, Correct Positioning, Safety Issues Teaching Recipient: Patient Teaching Methods: Demonstration, Discussion Response to Teaching: Reinforcement Needed Time/GCodes Time In: 1410 Time Out: 1440 Total Billed Treatment Time: 30 Total Billed Treatment 1 visit FA 10' GT 20' YELITZA LUU PT Jul 18, 2017 14:46
--- NOTE | 2017-07-18 14:59 | Individualized Plan of Care ---
Individualized Plan of Care Rehab Nursing IPOC Order Admission Date Jul 16, 2017 at 12:48 Current Orders Orders Admission-Acute Rehab Unit (07/16/17 13:23) Physical Therapy Rehab Orders (07/16/17 13:23) Occupational Therapy Order (07/16/17 13:23) Speech Therapy Orders (07/16/17 13:23) General/Regular (07/16/17 Lunch) Incentive Spirometry (Nursing) Q2H (07/16/17 13:23) Aspirin Tablet (Aspirin Tablet) (07/16/17 21:00) Senna S Tablet (Senokot S Tablet) (07/16/17 21:00) Hydrocodone/Apap 5/325 Tablet (Lortab 5 (07/16/17 13:30) Lisinopril Tablet (Zestril Tablet) (07/17/17 09:00) Pantoprazole Tablet (Protonix Tablet) (07/17/17 07:00) Ethosuximide (Non-Formulary) (Zarontin ( (07/17/17 06:00) Betamethasone/Clotrimazole Crm (Lotrison (07/16/17 13:30) Mesalamine Dr Tab/Cap (Asacol) (Asacol D (07/16/17 21:00) Pharmacy Communication (Pharmacy Communi (07/16/17 13:30) Consult Physician (07/16/17 13:54) Alendronate Tablet (Fosamax Tablet) (07/23/17 06:30) Estradiol Tablet (Estrace Tablet) (07/19/17 21:00) Nursing Communication (Patient (07/16/17 19:31) Pharmacy Consult/Message (07/17/17 07:19) Ethosuximide (Non-Formulary) (Zarontin ( (07/18/17 06:00) Patient Visit (07/17/17 ) Speech Sound Lang Comp (07/17/17 ) Acetaminophen Tablet (Tylenol Tablet) (07/17/17 12:45) Patient Visit (07/17/17 ) Pt Eval Moderate Complexity (07/17/17 ) Gait Training, Ea 15 Min (07/17/17 ) Functional Activities, Ea 15 (07/17/17 ) Patient Visit (07/17/17 ) Therapeutic, Group (07/17/17 ) Other Nursing Orders: Monitor for postop constipation and urinary retention PT IPOC Problem List: Activity Tolerance, Functional Strength, Safety, Balance, Gait, Transfer, Bed Mobility, ROM Treatment Plan: Continue Plan of Care Bed Mobility, Education, Functional Activity Javan, Functional Strength, Group Therapy, Gait, Safety, Therapeutic Exercise, Transfers Treatment Duration: Aug 07, 2017 Frequency: At least 5 of 7 days/Wk (IRF) Estimated Hrs Per Day: 1.5 hours per day OT IPOC Problems: Decreased Activ Tolerance, Decreased UE Strength, Dependent Transfers , Impaired Bed Mobility, Impaired Funct Balance, Impaired I ADL's, Impaired Self -Care Skills, Restricted Funct UE ROM OT Treatment, Training and Edu: Yes Plan of Care: ADL Retraining, Functional Mobility, UE Funct Exercise/Act Treatment Duration: Jul 31, 2017 Frequency: At least 5 of 7 days/Wk (IRF) Estimated Hrs Per Day: 1.[address] IPOC Speech Therapy Treatment Plan: Discontinue ST Treatment Duration: Jul 18, 2017 Frequency: Modified Program (IRF) Estimated Hrs Per Day: Other Foreman Or Supervisor And Operator/Case Mgmt Foreman Or Supervisor And Operator/Case Managemen: Discharge Planning, Patient/Family Counseling Physician IPOC Medical Issues being managed closely and that require the 24 hour availability of a physician:Pain management HTN GERD C CODE 08.51 Etiologic DX RT HIP FRX Medical Issues: Bowel/Bladder Function, DVT Prophylaxis, Falls Precautions, Fluid/Electrolyte/Nutrition Balance, Infection Protection, Pain Management, Wound Care, Other (List) (as per above) Brief Synthesis of Preadmission Screen, Post-Admission Evaluation, and Therapy Evaluations: 77 yo female who fell and sustained a rt hip fracture requiring reapir with ortho at O[facility] referred to IRU for ongoing care Had been Independent prior to this PMH CP with rt side weakness uses rt AFO OA s/p RT TKR HTN GERD lIVES WITH SPOUSE Medical Prognosis: good Anticipated Length of Stay: 3--18 Rehab Goals Modified Independent to supervision for adls and mobility skills Anticipated discharge destinat: Home with spouse with [facility] DEYSI DUFF MD Jul 18, 2017 14:59
[2017-07-18 17:55] VITALS: BP 144/74
[2017-07-19] MEDS: ETHOSUXIMIDE 250 MG PO SCH (06:04)
[2017-07-19] MEDS: PANTOPRAZOLE 40 MG (PROTONIX) TAB PO SCH (06:04)
[2017-07-19 06:20] VITALS: BP 132/81
[2017-07-19] MEDS: MESALAMINE DR 400 MG (ASACOL/DELZICOL) TAB/CAPS PO SCH ×2 (07:48→21:15)
[2017-07-19] MEDS: lisINopril 20 MG (PRINIVIL) TABLET PO SCH (07:48)
[2017-07-19] MEDS: ASPIRIN 325 MG (5 GR) TABLET PO SCH ×2 (07:48→21:15)
[2017-07-19] MEDS: SENNA W/DOCUSATE (SENOKOT S) TABLET PO SCH ×2 (07:48→21:17)
[2017-07-19] MEDS: ACETAMINOPHEN 500 MG TAB (TYLENOL) PO PRN ×2 (07:48→21:16)
--- NOTE | 2017-07-19 08:47 | Progress Note (SOAP) ---
Subjective Time Seen by Provider: 08:35 Subjective/Events-last exam Patient feeling better and doing better. Patient positive Objective Exam Vital Signs Date Time Temp Pulse Resp B/P (MAP) Pulse Ox O2 Delivery O2 Flow Rate FiO2 07/19/17 06:20 98.0 98 18 132/81 (98) 93 Room Air 07/18/17 17:55 97.5 103 16 144/74 (97) 93 Room Air I & O 07/19/17 07:00 Intake Total 1150 ml Balance 1150 ml Capillary Refill : Less Than 3 Seconds General Appearance: No Apparent Distress, Thin Assessment/Plan Assessment/Plan Assess & Plan/Chief Complaint Fractured right hip. . 07/18/17. Fractured right hip. Patient moving better. . 07/19/17. Fractured right hip. Patient improving. Patient positive Clinical Quality Measures DVT/VTE Risk/Contraindication: Risk Factor Score Per Nursin RFS Level Per Nursing on Admit: 4+=Very High RUDY GOSS DO Jul 19, 2017 08:47
--- NOTE | 2017-07-19 09:13 | PM & R (SOAP) Progress Note ---
Subjective Time Seen by Provider: 08:00 Subjective/Events-last exam Patient was seen in her room this AM Patient Min assist for transfers and gait with WW. Eating well Sleeping OK Had BM yesterday Pain control adequate Review of Systems Musculoskeletal: leg pain Objective Exam Last Set of Vital Signs Vital Signs Date Time Temp Pulse Resp B/P (MAP) Pulse Ox O2 Delivery O2 Flow Rate FiO2 07/19/17 06:20 98.0 98 18 132/81 (98) 93 Room Air Capillary Refill : Less Than 3 Seconds I&O Intake and Output 07/19/17 00:00 Intake Total 1100 ml Balance 1100 ml Intake Oral 1100 ml # Voids 6 # Bowel Movements 2 General: Alert, Oriented X3, Cooperative, No Acute Distress HEENT: Atraumatic, PERRLA, EOMI, Mucous Memb Moist/[place] Neck: Supple, No JVD Lungs: Clear to Auscultation Heart: Regular Rate Abdomen: Normal Bowel Sounds, Soft, No Tenderness Extremities: No Edema Neuro: Other (RT sided weaknes and at left hip Incision healing well) Assessment/Plan Assessment left Hip frx s/p fall s/p ORIF OSH WBAT CP affecting the rt side OA s/p Rt TKR in past HTN controlled with meds GERD on meds Plan Continue PT/OT/Pain management Team Conference later today-See report for full functional update and POC and DEYSI WELLS MD Jul 19, 2017 09:13
--- NOTE | 2017-07-19 11:47 | Physical Therapy Daily Note ---
PT Daily Note-Current Subjective Pt sitting in [facility] in room upon arrival. Pt agrees to PT. Pt reports just using restroom and wanted to order lunch before leaving room for tx. Pain Numeric Pain Scale: 3 Location: Right Location Body Site: Hip Pain Description: Ache Mental Status Patient Orientation: Person, Place, Situation Transfers Functional [place] Measure 0=Not Assessed/NA 4=Minimal Assistance 1=Total Assistance 5=Supervision or Setup 2=Maximal Assistance 6=Modified [place] 3=Moderate Assistance 7=Complete IndependenceIRFPAI Quality Coding Scale 6 Independent with activity with or without an assistive device 5 Patient requires set up or clean up by helper. Patient completes activity by themselves 4 Supervision or touching assist (CGA). [place] provide cues , steadying assist 3 The helper provides less than half the effort to complete the activity 2 The helper provides more than half the effort to complete the activity 1 Dependent. The helper does all the effort to complete an activity 7 Patient refused to complete or attempt activity 9 The patient did not perform the activity before the current illness or injury 88 Not attempted due to Medical conditions or safety concerns Scootin Rollin Supine to/from Sit: 4 Sit to/from Stand: 4 Sit to Lying (QC): 4 Sit to Stand (QC): 4 Weight Bearing Right Lower Extremity: Right Weight Bearing/Tolerated Left Lower Extremity: Left Full Weight Bearing Gait Training Does the Patient Walk?: Yes Distance (FIM): 1=up to 49 ft Distance: 20' x 2 Walk 10 feet (QC): 4 Gait Level of Assist: 4 Gait Persons Needed: 1 Gait Assistive Device: FWW Pt walks with slow katerina but steady, no LOB. Pt fatigues easy. Wheelchair Training Does the Pt Use a Wheelchair?: Yes Wheelchair Distance: 3=150 ft Distance: 200' Wheelchair Level of Assist: 5 Wheel 50 ft with 2 turns (QC): 5 Wheel 150 ft (QC): 5 Type of Wheelchair: Manual Exercises Supine Ex: Ankle pumps, Glut sets, Heel Slides, Straight leg raise, Hip abd/add Supine Reps: 15 Seated Therapy Exercises: Long arc quads, Hip flexion, Kicking activity Seated Reps: 10 Treatments Pt orders lunch at start of tx so it will arrive at end of tx. Pt propels self to Therapy Gym in hallway. Pt transfers from [facility] to standing at [facility] then SPT to EOM at [facility]. Pt transfers to Supine on mat at Min A to lift RLE and completes Supine Ex. Pt transfers to EOM then standing using FWW at [facility]. Pt ambulates in Therapy Gym using FWW at [facility]. Pt returns to [facility] after walk then propels in Therapy Commons. Pt returns to room and completes Seated Ex in [facility]. Pt resting in [facility] at end of tx with all needs met and awaiting lunch. Assessment Current Status: Good Progress Pt's strength is improving for transfers and ambulation. PT Short Term Goals Short Term Goals Time Frame: Jul 24, 2017 Transfers (B,C,W/C) (FIM): 5 Gait (FIM): 2 Gait Distance Comment: 50' Gait Level of Assist: 4 Gait Assistive Device: FWW Wheelchair Distance: 50' PT [facility] Goals [facility] Goals PT [facility] Goals Time Frame: Aug 07, 2017 Transfers (B,C,W/C) (FIM): 5 Sit to Lying (QC): 4 Lying-Sitting on Side/Bed(QC): 4 Sit to Stand (QC): 4 Rollin Roll Left to Right (QC): 4 Chair/Ewk-jt-Ivcdn Xfer(QC): 4 Car Transfer (QC): 4 Gait (FIM): 5 Distance: 150' Walk 10 feet (QC): 4 Walk 10ft-Uneven Surface(QC): 4 Walk 50ft with 2 Turns (QC): 4 Walk 150 ft (QC): 4 Gait Level of Assist: 5 Stairs (FIM): 2 # of Steps: 4 1 Step (curb) (QC): 4 4 Steps (QC): 4 Stairs Level Of Assist: 4 PT Plan Problem List Problem List: Activity Tolerance, Functional Strength, Safety, Balance, Gait, Transfer Treatment/Plan Treatment Plan: Continue Plan of Care Treatment Plan: Bed Mobility, Education, Functional Activity Javan, Functional Strength, Group Therapy, Gait, Safety, Therapeutic Exercise, Transfers Treatment Duration: Aug 07, 2017 Frequency: At least 5 of 7 days/Wk (IRF) Estimated Hrs Per Day: 1.5 hours per day Patient and/or Family Agrees t: Yes Safety Risks/Education Patient Education: Gait Training, Transfer Techniques, Correct Positioning, W/ C Management, Safety Issues Teaching Recipient: Patient Teaching Methods: Discussion Response to Teaching: Verbalize Understanding Time/GCodes Time In: 1045 Time Out: 1145 Total Billed Treatment Time: 60 Total Billed Treatment 1, GT (10m), [facility] (20m) & EX x2 (30m) ONOFRE HERNANDEZ [employer] OFFICER Jul 19, 2017 11:47
--- NOTE | 2017-07-19 13:10 | Occupational Ther Daily Note ---
OT Current Status-Daily Note Subjective No pain reported. Appearance Pt. is up in her wheelchair. Agrees to shower. Mental Status/Objective Patient Orientation: Person, Place, Time Functional [place] Measure 0=Not Assessed/NA 4=Minimal Assistance 1=Total Assistance 5=Supervision or Setup 2=Maximal Assistance 6=Modified [place] 3=Moderate Assistance 7=Complete [place] ADL-Treatment Functional [place] Measure 0=Not Assessed/NA 4=Minimal Assistance 1=Total Assistance 5=Supervision or Setup 2=Maximal Assistance 6=Modified [place] 3=Moderate Assistance 7=Complete IndependenceIRFPAI Quality Coding Scale 6 Independent with activity with or without an assistive device 5 Patient requires set up or clean up by helper. Patient completes activity by themselves 4 Supervision or touching assist (CGA). [place] provide cues , steadying assist 3 The helper provides less than half the effort to complete the activity 2 The helper provides more than half the effort to complete the activity 1 Dependent. The helper does all the effort to complete an activity 7 Patient refused to complete or attempt activity 9 The patient did not perform the activity before the current illness or injury 88 Not attempted due to Medical conditions or safety concerns Grooming (FIM): 5 (SBA at sink for balance to brush teeth.) Oral Hygiene (QC): 4 Upper Body (FIM): 5 Upper Body Dressing (QC): 4 Lower Body Dressing (FIM): 3 (Pt. practiced doffing/donning socks with DS, sock aide. Required assist to don AFO and right shoe.) Lower Body Dressing (QC): 3 On/Off Footwear (QC): 3 Transfers (B, C, W/C) (FIM): 4 (Min assist sit-stand, and to get legs into bed. ) Other Treatment Pt. declined showering, but agreed to change clothes and wash her face/under arms at sink. Completed most of task at wheelchair level, but also stood several times to pull up underwear, and to brush her teeth. Went to therapy gym after ADL activity and completed armbike x 10 minutes on armbike with several brief rest breaks. Did this task to increase overall strength and endurance. Pt. went back to room via wheelchair and transfer to bed with min assist. Education OT Patient Education: Correct positioning, Exercise program, Modified ADL techniques, Progress toward Goal/Update tx plan, Purpose of tx/functional activities, Reviewed precautions, Rehab process, Transfer techniques, Use of adapted equipment Teaching Recipient: Patient Teaching Methods: Demonstration, Discussion Response to Teaching: Verbalize Understanding, Return Demonstration OT Short Term Goals Short Term Goals Time Frame: Jul 24, 2017 Eating(FIM): 6 Grooming(FIM): 5 Bathing(FIM): 4 Upper Body Dressing(FIM): 5 Lower Body Dressing(FIM): 4 Toileting(FIM): 5 Transfers (B,C,W/C) (FIM): 5 Toilet/Commode Transfer(FIM): 5 Shower Transfer(FIM): 4 Additional Short Term Goals: 1-Demonstrate ADL Tasks, 2-Verbalize Understanding , 3-ImproveStrength/[place]avan 1=Demonstrate adherence to instructed precautions during ADL tasks. 2=Patient will verbalize/demonstrate understanding of assistive devices/ modifications for ADL. 3=Patient will improve strength/tolerance for activity to enable patient to perform ADL's. OT [facility] Goals Lead Nuclear Medicine Technologist Goals Time Frame: Jul 31, 2017 Eating (FIM): 6 Eating (QC): 6 Groomin Oral Hygiene (QC): 6 Bathing(FIM): 5 Shower/Bathe Self (QC): 5 Upper Body Dressing(FIM): 6 Upper Body Dressing (QC): 6 Lower Body Dressing(FIM): 6 Lower Body Dressing (QC): 6 On/Off Footwear (QC): 6 Toileting(FIM): 6 Toileting Hygiene (QC): 6 Transfers (B,C,W/C) (FIM): 6 Toilet/Commode Transfer(FIM): 6 Toilet/Commode Transfer (QC): 6 Shower Transfer(FIM): 5 Additional Goals: 1-Demonstrate ADL Tasks, 2-Verbalize Understanding, 3- ImproveStrength/Javan 1=Demonstrate adherence to instructed precautions during ADL tasks. 2=Patient will verbalize/demonstrate understanding of assistive devices/ modifications for ADL. 3=Patient will improve strength/tolerance for activity to enable patient to perform ADL's. OT Education/Plan Problem List/Assessment Assessment: Decreased Activ Tolerance, Decreased UE Strength, Dependent Transfers, Impaired I ADL's Discharge Recommendations Plan/Recommendations: Continue POC Therapy D/C Recommendations: Home w/ Family Support, Occupational Therapy Home Care Equpiment Recommendations-D/C: Hip Kit Treatment Plan/Plan of Care Treatment,Training & Education: Yes Patient would benefit from OT for education, treatment and training to promote independence in ADL's, mobility, safety and/or upper extremity function for ADL' s. Plan of Care: ADL Retraining, Functional Mobility, UE Funct Exercise/Act Treatment Duration: Jul 31, 2017 Frequency: At least 5 of 7 days/Wk (IRF) Estimated Hrs Per Day: 1.5 hours per day Agreement: Yes Rehab Potential: Good Time/GCodes Start Time: 08:30 Stop Time: 09:30 Total Time Billed (hr/min): 60 Billed Treatment Time 1, ADL x 45minutes, Ex x 15minutes MONTY JIMENEZ OT Jul 19, 2017 13:10
--- NOTE | 2017-07-19 15:12 | Therapy Group Daily Note ---
Therapy Daily Group Note Patient Education Topic Other List Below (nutrition) Exercises LE Seated Exercise, UE Exercise Other/Notes Pt ambulated with FWW to OT/PT group. Group consisted of introductions (name, place living, favorite food), socialization, education for healthy eating and UE /LE seated exercises. Pt introduced self appropriately and actively listened to peers introduce themselves. Pt was able to complete UE/LE seated exercises without difficulty using L UE, R UE increased tone. Pt attentively listened to educational topic of healthy eating and was able to answer questions and give examples. Pt contributed to conversation and discussed with peers. After therapy, pt ambulated with FWW to room. All needs met. Start Time: 13:00 Stop Time: 14:15 Total Billed Treatment Time: 75 Total Billed Treatment 1-GRP PHIL ZIMMERMAN Jul 19, 2017 15:12
[2017-07-19 18:33] VITALS: BP 149/70
[2017-07-19] MEDS: ESTRADIOL 1 MG TAB (ESTRACE) VG SCH (21:15)
[2017-07-20 05:25] VITALS: BP 135/76
[2017-07-20] MEDS: PANTOPRAZOLE 40 MG (PROTONIX) TAB PO SCH (06:01)
[2017-07-20] MEDS: ETHOSUXIMIDE 250 MG PO SCH (06:02)
--- NOTE | 2017-07-20 08:48 | Progress Note (SOAP) ---
Subjective Time Seen by Provider: 08:47 Subjective/Events-last exam Patient doing better. Right hip fracture. Patient positive and smiling Objective Exam Vital Signs Date Time Temp Pulse Resp B/P (MAP) Pulse Ox O2 Delivery O2 Flow Rate FiO2 07/20/17 05:25 98.4 99 16 135/76 (95) 95 Room Air 07/19/17 18:33 98.1 105 16 149/70 (96) 96 I & O 07/20/17 07:00 Intake Total 1200 ml Balance 1200 ml Capillary Refill : Less Than 3 Seconds General Appearance: No Apparent Distress, WD/WN Assessment/Plan Assessment/Plan Assess & Plan/Chief Complaint Fractured right hip. . 07/18/17. Fractured right hip. Patient moving better. . 07/19/17. Fractured right hip. Patient improving. Patient positive. . . Fractured right hip. Patient States since improving. Patient content Clinical Quality Measures DVT/VTE Risk/Contraindication: Risk Factor Score Per Nursin RFS Level Per Nursing on Admit: 4+=Very High RUDY GOSS DO Jul 20, 2017 08:48
--- NOTE | 2017-07-20 08:51 | PM & R (SOAP) Progress Note ---
Subjective Time Seen by Provider: 07:50 Subjective/Events-last exam Patient was seen in her room this AM Patient min assist for transfers Objective Exam Last Set of Vital Signs Vital Signs Date Time Temp Pulse Resp B/P (MAP) Pulse Ox O2 Delivery O2 Flow Rate FiO2 07/20/17 05:25 98.4 99 16 135/76 (95) 95 Room Air Capillary Refill : Less Than 3 Seconds I&O Intake and Output 07/20/17 00:00 Intake Total 950 ml Balance 950 ml Intake Oral 950 ml # Voids 7 # Bowel Movements 4 General: Alert, Oriented X3, Cooperative, No Acute Distress HEENT: Atraumatic, PERRLA, EOMI, Mucous Memb Moist/[place] Neck: Supple, No JVD Lungs: Clear to Auscultation Heart: Regular Rate Abdomen: Normal Bowel Sounds, Soft, No Tenderness Extremities: No Edema Neuro: Other (RT sided weaknes and at left hip Incision healing well) Assessment/Plan Assessment left Hip frx s/p fall s/p ORIF OSH WBAT CP affecting the rt side OA s/p Rt TKR in past HTN controlled with meds GERD on meds Plan Continue PT/OT/Pain management Team Conference held yesterday-See report for full functional update and POC and DEYSI WELLS MD Jul 20, 2017 08:51
[2017-07-20] MEDS: SENNA W/DOCUSATE (SENOKOT S) TABLET PO SCH ×2 (09:06→22:05)
[2017-07-20] MEDS: MESALAMINE DR 400 MG (ASACOL/DELZICOL) TAB/CAPS PO SCH ×2 (09:06→22:05)
[2017-07-20] MEDS: lisINopril 20 MG (PRINIVIL) TABLET PO SCH (09:06)
[2017-07-20] MEDS: ASPIRIN 325 MG (5 GR) TABLET PO SCH ×2 (09:06→22:05)
[2017-07-20] MEDS: ACETAMINOPHEN 500 MG TAB (TYLENOL) PO PRN (10:02)
--- NOTE | 2017-07-20 11:10 | Physical Therapy Daily Note ---
PT Daily Note-Current Subjective Pt sitting in recliner upon arrival. Pt agrees to PT but needs to use restroom. Pain Numeric Pain Scale: 3 Location: Right Location Body Site: Hip Pain Description: Ache Mental Status Patient Orientation: Person, Place, Time, Situation Attachments: Other-See Comments (R AFO) Transfers Functional [place] Measure 0=Not Assessed/NA 4=Minimal Assistance 1=Total Assistance 5=Supervision or Setup 2=Maximal Assistance 6=Modified [place] 3=Moderate Assistance 7=Complete IndependenceIRFPAI Quality Coding Scale 6 Independent with activity with or without an assistive device 5 Patient requires set up or clean up by helper. Patient completes activity by themselves 4 Supervision or touching assist ([facility]). [place] provide cues , steadying assist 3 The helper provides less than half the effort to complete the activity 2 The helper provides more than half the effort to complete the activity 1 Dependent. The helper does all the effort to complete an activity 7 Patient refused to complete or attempt activity 9 The patient did not perform the activity before the current illness or injury 88 Not attempted due to Medical conditions or safety concerns Scootin Supine to/from Sit: 4 Sit to/from Stand: 4 Sit to Lying (QC): 4 Sit to Stand (QC): 4 Weight Bearing Right Lower Extremity: Right Weight Bearing/Tolerated Left Lower Extremity: Left Full Weight Bearing Gait Training Does the Patient Walk?: Yes Distance (FIM): 3=150 ft Distance: 150' Walk 10 feet (QC): 4 Walk 50 ft with 2 Turns(QC): 4 Walk 150 ft (QC): 4 Gait Level of Assist: 4 Gait Persons Needed: 1 Gait Assistive Device: FWW Pt has slow but steady gait. Pt fatigues quickly. Wheelchair Training Does the Pt Use a Wheelchair?: No Stair Training Stair Training: Handrails/: 2 handrails #of Steps: 4 1 Step (curb) (QC): 4 4 Steps (QC): 4 Stairs: Pattern: Step to Level of Assist: 4 Exercises Seated Therapy Exercises: Ankle pumps, Long arc quads, Hip flexion, Kicking activity, Hip abd/add Seated Reps: 20 Treatments Pt transfers recliner to standing using FWW at [facility]. Pt uses restroom then ambulates in hallway using FWW at [facility]. Pt completes Seated Ex in chair followed by short rest then ambulated 1 set of 4 stairs. Pt again rested at EOM then transferred to Supine for Supine EX. Pt ambulated back to room at end of tx with all needs met. Assessment Current Status: Good Progress Pt is walking farther and is now ambulating stairs with CGA. PT Short Term Goals Short Term Goals Time Frame: Jul 24, 2017 Transfers (B,C,W/C) (FIM): 5 Gait (FIM): 2 Gait Distance Comment: 50' Gait Level of Assist: 4 Gait Assistive Device: FWW Wheelchair Distance: 200' PT Retirement Goals Retirement Goals PT Clinical Psychology Professor Goals Time Frame: Aug 07, 2017 Transfers (B,C,W/C) (FIM): 5 Sit to Lying (QC): 4 Lying-Sitting on Side/Bed(QC): 4 Sit to Stand (QC): 4 Rollin Roll Left to Right (QC): 4 Chair/Onm-vc-Pyymo Xfer(QC): 4 Car Transfer (QC): 4 Gait (FIM): 5 Distance: 150' Walk 10 feet (QC): 4 Walk 10ft-Uneven Surface(QC): 4 Walk 50ft with 2 Turns (QC): 4 Walk 150 ft (QC): 4 Gait Level of Assist: 5 Stairs (FIM): 2 # of Steps: 4 1 Step (curb) (QC): 4 4 Steps (QC): 4 Stairs Level Of Assist: 4 PT Plan Problem List Problem List: Activity Tolerance, Functional Strength, Safety, Balance, Gait, Transfer Treatment/Plan Treatment Plan: Continue Plan of Care Treatment Plan: Bed Mobility, Education, Functional Activity Javan, Functional Strength, Group Therapy, Gait, Safety, Therapeutic Exercise, Transfers Treatment Duration: Aug 07, 2017 Frequency: At least 5 of 7 days/Wk (IRF) Estimated Hrs Per Day: 1.5 hours per day Patient and/or Family Agrees t: Yes Safety Risks/Education Patient Education: Gait Training, Transfer Techniques, Steps, Correct Positioning, Safety Issues Teaching Recipient: Patient Teaching Methods: Discussion Response to Teaching: Verbalize Understanding Time/GCodes Time In: 1000 Time Out: 1100 Total Billed Treatment Time: 60 Total Billed Treatment 1, GT (15m), EX x2 (30m) & FA (15m) ONOFRE HERNANDEZ PTA Jul 20, 2017 11:10
[2017-07-20] MEDS: HYDROcodone/APAP 5 MG/325 MG (LORTAB) TAB PO PRN ×2 (13:58→22:05)
--- NOTE | 2017-07-20 15:09 | Occupational Ther Daily Note ---
OT Current Status-Daily Note Subjective No pain reported. Appearance Pt. in bed. Agrees to work with OT. Mental Status/Objective Patient Orientation: Person, Place, Time Functional [place] Measure 0=Not Assessed/NA 4=Minimal Assistance 1=Total Assistance 5=Supervision or Setup 2=Maximal Assistance 6=Modified [place] 3=Moderate Assistance 7=Complete [place] ADL-Treatment Functional [place] Measure 0=Not Assessed/NA 4=Minimal Assistance 1=Total Assistance 5=Supervision or Setup 2=Maximal Assistance 6=Modified [place] 3=Moderate Assistance 7=Complete IndependenceIRFPAI Quality Coding Scale 6 Independent with activity with or without an assistive device 5 Patient requires set up or clean up by helper. Patient completes activity by themselves 4 Supervision or touching assist (CGA). [place] provide cues , steadying assist 3 The helper provides less than half the effort to complete the activity 2 The helper provides more than half the effort to complete the activity 1 Dependent. The helper does all the effort to complete an activity 7 Patient refused to complete or attempt activity 9 The patient did not perform the activity before the current illness or injury 88 Not attempted due to Medical conditions or safety concerns Grooming (FIM): 5 (SBA at sink in stance. Pt. was able to brush teeth and hair while holding onto side of sink.) Oral Hygiene (QC): 4 Bathing (FIM): 3 (Pt. required assistance to wash bilateral feet in shower. Pt. able to wash all other parts.) Shower/Bathe Self (QC): 3 Upper Body (FIM): 5 Upper Body Dressing (QC): 4 Lower Body Dressing (FIM): 3 (Pt. attempted with hard plastic sock aide with difficulty. Pt. then attempted again with sock sock aide, but still had difficulty. Overall, required mod assist with LE dressing with AE. Pt. states that her spouse and sister can help her with this.) Lower Body Dressing (QC): 3 On/Off Footwear (QC): 3 Transfers (B, C, W/C) (FIM): 4 (Min assist to stand and ambulate.) Toilet/Commode Transfer (FIM): 4 Shower Transfer(FIM): 4 Other Treatment After shower task, pt. completed bilateral UE exercises. Pt. unable to use dumbbell on right UE, so applied 1 lb. wrist weight. Tolerated 2 lb. dumbbell to left UE. Completed 5 bilateral UE exercises x 15 reps in all planes to increase overall strength. Education OT Patient Education: Correct positioning, Exercise program, Home exercise program, Modified ADL techniques, Progress toward Goal/Update tx plan, Purpose of tx/functional activities, Reviewed precautions, Rehab process, Transfer techniques, Use of adapted equipment Teaching Recipient: Patient Teaching Methods: Demonstration, Discussion Response to Teaching: Verbalize Understanding, Return Demonstration OT Short Term Goals Short Term Goals Time Frame: Jul 24, 2017 Eating(FIM): 6 Grooming(FIM): 5 Bathing(FIM): 4 Upper Body Dressing(FIM): 5 Lower Body Dressing(FIM): 4 Toileting(FIM): 5 Transfers (B,C,W/C) (FIM): 5 Toilet/Commode Transfer(FIM): 5 Shower Transfer(FIM): 4 Additional Short Term Goals: 1-Demonstrate ADL Tasks, 2-Verbalize Understanding , 3-ImproveStrength/[place]avan 1=Demonstrate adherence to instructed precautions during ADL tasks. 2=Patient will verbalize/demonstrate understanding of assistive devices/ modifications for ADL. 3=Patient will improve strength/tolerance for activity to enable patient to perform ADL's. OT Jail Goals Plasterer Spray Gun Goals Time Frame: Jul 31, 2017 Eating (FIM): 6 Eating (QC): 6 Groomin Oral Hygiene (QC): 6 Bathing(FIM): 5 Shower/Bathe Self (QC): 5 Upper Body Dressing(FIM): 6 Upper Body Dressing (QC): 6 Lower Body Dressing(FIM): 6 Lower Body Dressing (QC): 6 On/Off Footwear (QC): 6 Toileting(FIM): 6 Toileting Hygiene (QC): 6 Transfers (B,C,W/C) (FIM): 6 Toilet/Commode Transfer(FIM): 6 Toilet/Commode Transfer (QC): 6 Shower Transfer(FIM): 5 Additional Goals: 1-Demonstrate ADL Tasks, 2-Verbalize Understanding, 3- ImproveStrength/[place]avan 1=Demonstrate adherence to instructed precautions during ADL tasks. 2=Patient will verbalize/demonstrate understanding of assistive devices/ modifications for ADL. 3=Patient will improve strength/tolerance for activity to enable patient to perform ADL's. OT Education/Plan Problem List/Assessment Assessment: Decreased Activ Tolerance, Impaired Bed Mobility, Impaired I ADL's , Impaired Self-Care Skills, Restricted Funct UE ROM Discharge Recommendations Plan/Recommendations: Continue POC Therapy D/C Recommendations: Home w/ Family Support, Occupational Therapy Home Care Equpiment Recommendations-D/C: Hip Kit Treatment Plan/Plan of Care Treatment,Training & Education: Yes Patient would benefit from OT for education, treatment and training to promote independence in ADL's, mobility, safety and/or upper extremity function for ADL' s. Plan of Care: ADL Retraining, Functional Mobility, UE Funct Exercise/Act Treatment Duration: Jul 31, 2017 Frequency: At least 5 of 7 days/Wk (IRF) Estimated Hrs Per Day: 1.5 hours per day Agreement: Yes Rehab Potential: Good Time/GCodes Start Time: 08:30 Stop Time: 10:00 Total Time Billed (hr/min): 90 Billed Treatment Time 1, ADL x 75minutes, EX x 15minutes MONTY JIMENEZ OT Jul 20, 2017 15:09
--- NOTE | 2017-07-20 16:12 | Physical Therapy Daily Note ---
PT Daily Note-Current Subjective Pt sitting in recliner upon arrival. Pt agrees to PT. Pain Numeric Pain Scale: 3 Location: Right Location Body Site: Hip Pain Description: Ache Mental Status Patient Orientation: Person, Place, Time, Situation Attachments: Other-See Comments (R AFO) Transfers Functional [place] Measure 0=Not Assessed/NA 4=Minimal Assistance 1=Total Assistance 5=Supervision or Setup 2=Maximal Assistance 6=Modified [place] 3=Moderate Assistance 7=Complete IndependenceIRFPAI Quality Coding Scale 6 Independent with activity with or without an assistive device 5 Patient requires set up or clean up by helper. Patient completes activity by themselves 4 Supervision or touching assist ([facility]). [place] provide cues , steadying assist 3 The helper provides less than half the effort to complete the activity 2 The helper provides more than half the effort to complete the activity 1 Dependent. The helper does all the effort to complete an activity 7 Patient refused to complete or attempt activity 9 The patient did not perform the activity before the current illness or injury 88 Not attempted due to Medical conditions or safety concerns Scootin Sit to/from Stand: 4 Sit to Stand (QC): 4 Weight Bearing Right Lower Extremity: Right Weight Bearing/Tolerated Left Lower Extremity: Left Full Weight Bearing Gait Training Does the Patient Walk?: Yes Distance (FIM): 3=150 ft Distance: 150' Walk 10 feet (QC): 4 Walk 50 ft with 2 Turns(QC): 4 Walk 150 ft (QC): 4 Gait Level of Assist: 4 Gait Persons Needed: 1 Gait Assistive Device: FWW Wheelchair Training Does the Pt Use a Wheelchair?: No Exercises Seated Therapy Exercises: Ankle pumps, Long arc quads, Hip flexion, Kicking activity, Hip abd/add Seated Reps: 15 Treatments Pt transfers from recliner to standing then ambulates in hallway using FWW at [facility]. Pt completes Seated Ex in recliner then ambulates back to room to rest. Pt resting in recliner at end of tx with all needs met. Assessment Current Status: Good Progress Pt is improving with strength and mobility. PT Short Term Goals Short Term Goals Time Frame: Jul 24, 2017 Transfers (B,C,W/C) (FIM): 5 Gait (FIM): 2 Gait Distance Comment: 50' Gait Level of Assist: 4 Gait Assistive Device: FWW Wheelchair Distance: 200' PT Senior Living Goals Senior Living Goals PT Superintendent Sanitation Goals Time Frame: Aug 07, 2017 Transfers (B,C,W/C) (FIM): 5 Sit to Lying (QC): 4 Lying-Sitting on Side/Bed(QC): 4 Sit to Stand (QC): 4 Rollin Roll Left to Right (QC): 4 Chair/Oxu-pz-Jxaab Xfer(QC): 4 Car Transfer (QC): 4 Gait (FIM): 5 Distance: 150' Walk 10 feet (QC): 4 Walk 10ft-Uneven Surface(QC): 4 Walk 50ft with 2 Turns (QC): 4 Walk 150 ft (QC): 4 Gait Level of Assist: 5 Stairs (FIM): 2 # of Steps: 4 1 Step (curb) (QC): 4 4 Steps (QC): 4 Stairs Level Of Assist: 4 PT Plan Problem List Problem List: Activity Tolerance, Functional Strength, Safety, Balance, Gait, Transfer Treatment/Plan Treatment Plan: Continue Plan of Care Treatment Plan: Bed Mobility, Education, Functional Activity J[place], Functional Strength, Group Therapy, Gait, Safety, Therapeutic Exercise, Transfers Treatment Duration: Aug 07, 2017 Frequency: At least 5 of 7 days/Wk (IRF) Estimated Hrs Per Day: 1.5 hours per day Patient and/or Family Agrees t: Yes Safety Risks/Education Patient Education: Gait Training, Transfer Techniques, Correct Positioning, Safety Issues Teaching Recipient: Patient Teaching Methods: Discussion Response to Teaching: Verbalize Understanding Time/GCodes Time In: 1400 Time Out: 1430 Total Billed Treatment Time: 30 Total Billed Treatment 1, GT (15m) & EX (15m) ONOFRE HERNANDEZ NEUROLOGICAL SURGEON Jul 20, 2017 16:12
[2017-07-20 18:00] VITALS: BP 130/68
[2017-07-21 05:08] VITALS: BP 143/69
[2017-07-21] MEDS: PANTOPRAZOLE 40 MG (PROTONIX) TAB PO SCH (05:54)
[2017-07-21] MEDS: ETHOSUXIMIDE 250 MG PO SCH (05:54)
[2017-07-21] MEDS: ASPIRIN 325 MG (5 GR) TABLET PO SCH ×2 (08:18→21:18)
[2017-07-21] MEDS: lisINopril 20 MG (PRINIVIL) TABLET PO SCH (08:18)
[2017-07-21] MEDS: MESALAMINE DR 400 MG (ASACOL/DELZICOL) TAB/CAPS PO SCH ×2 (08:18→21:17)
[2017-07-21] MEDS: SENNA W/DOCUSATE (SENOKOT S) TABLET PO SCH ×2 (08:19→21:18)
[2017-07-21] MEDS: HYDROcodone/APAP 5 MG/325 MG (LORTAB) TAB PO PRN ×2 (08:19→21:18)
--- NOTE | 2017-07-21 08:28 | PM & R (SOAP) Progress Note ---
Subjective Time Seen by Provider: 08:00 Subjective/Events-last exam Patient was seen in her room this AM Patient min assist for transfers. Objective Exam Last Set of Vital Signs Vital Signs Date Time Temp Pulse Resp B/P (MAP) Pulse Ox O2 Delivery O2 Flow Rate FiO2 07/21/17 05:08 97.9 94 18 143/69 (93) 94 Room Air Capillary Refill : Less Than 3 Seconds I&O Intake and Output 07/21/17 00:00 Intake Total 1300 ml Balance 1300 ml Intake Oral 1300 ml # Voids 4 # Bowel Movements 3 General: Alert, Oriented X3, Cooperative, No Acute Distress HEENT: Atraumatic, PERRLA, EOMI, Mucous Memb Moist/[place] Neck: Supple, No JVD Lungs: Clear to Auscultation Heart: Regular Rate Abdomen: Normal Bowel Sounds, Soft, No Tenderness Extremities: No Edema Neuro: Other (RT sided weaknes and at left hip Incision healing well) Assessment/Plan Assessment left Hip frx s/p fall s/p ORIF OSH WBAT CP affecting the rt side OA s/p Rt TKR in past HTN controlled with meds GERD on meds Plan Continue PT/OT/Pain management Team Conference held 07-19-17-See report for full functional update and POC and DEYSI WELLS MD Jul 21, 2017 08:28
--- NOTE | 2017-07-21 10:07 | Occupational Ther Daily Note ---
OT Current Status-Daily Note Subjective Pt in bed, agrees to treatment. Pt reports 3/10 pain in right LE. Mental Status/Objective Functional [place] Measure 0=Not Assessed/NA 4=Minimal Assistance 1=Total Assistance 5=Supervision or Setup 2=Maximal Assistance 6=Modified [place] 3=Moderate Assistance 7=Complete [place] ADL-Treatment Pt declined shower, but would like a sponge bath and change clothes. Pt supine to sit with minimal assistance. Sit to stand with CGA. Gait to restroom with FWW. Pt completed grooming tasks standing at sink with SBA. Sponge bath completed seated at sink. Upper body bathing completed with set up. Pt able to wash bilateral upper legs, buttocks, and vikash area. Assist to wash lower legs and feet secondary to hip precautions and no long sponge available. Don pullover gown with set up. Pt used dressing stick to don underwear with CGA for balance during pant hike. Pt doffed socks with SBA using dressing stick. Required mod assist to don socks using soft sock aid. Pt donned left shoe with minimal assistance, but required mod assist for right shoe and AFO. Increased time for LE dressing tasks. Pt transferred to chair using FWW. Sitting in chair with needs met and sister present after session. Functional [place] Measure 0=Not Assessed/NA 4=Minimal Assistance 1=Total Assistance 5=Supervision or Setup 2=Maximal Assistance 6=Modified [place] 3=Moderate Assistance 7=Complete IndependenceIRFPAI Quality Coding Scale 6 Independent with activity with or without an assistive device 5 Patient requires set up or clean up by helper. Patient completes activity by themselves 4 Supervision or touching assist (CGA). [place] provide cues , steadying assist 3 The helper provides less than half the effort to complete the activity 2 The helper provides more than half the effort to complete the activity 1 Dependent. The helper does all the effort to complete an activity 7 Patient refused to complete or attempt activity 9 The patient did not perform the activity before the current illness or injury 88 Not attempted due to Medical conditions or safety concerns Grooming (FIM): 5 Oral Hygiene (QC): 5 Bathing (FIM): 4 Upper Body (FIM): 5 Upper Body Dressing (QC): 5 Lower Body Dressing (FIM): 3 Lower Body Dressing (QC): 3 OT Short Term Goals Short Term Goals Time Frame: Jul 24, 2017 Eating(FIM): 6 Grooming(FIM): 5 Bathing(FIM): 4 Upper Body Dressing(FIM): 5 Lower Body Dressing(FIM): 4 Toileting(FIM): 5 Transfers (B,C,W/C) (FIM): 5 Toilet/Commode Transfer(FIM): 5 Shower Transfer(FIM): 4 Additional Short Term Goals: 1-Demonstrate ADL Tasks, 2-Verbalize Understanding , 3-ImproveStrength/[place] 1=Demonstrate adherence to instructed precautions during ADL tasks. 2=Patient will verbalize/demonstrate understanding of assistive devices/ modifications for ADL. 3=Patient will improve strength/tolerance for activity to enable patient to perform ADL's. OT Social Human Services Assistants Goals Social Human Services Assistants Goals Time Frame: Jul 31, 2017 Eating (FIM): 6 Eating (QC): 6 Groomin Oral Hygiene (QC): 6 Bathing(FIM): 5 Shower/Bathe Self (QC): 5 Upper Body Dressing(FIM): 6 Upper Body Dressing (QC): 6 Lower Body Dressing(FIM): 6 Lower Body Dressing (QC): 6 On/Off Footwear (QC): 6 Toileting(FIM): 6 Toileting Hygiene (QC): 6 Transfers (B,C,W/C) (FIM): 6 Toilet/Commode Transfer(FIM): 6 Toilet/Commode Transfer (QC): 6 Shower Transfer(FIM): 5 Additional Goals: 1-Demonstrate ADL Tasks, 2-Verbalize Understanding, 3- ImproveStrength/[place]avan 1=Demonstrate adherence to instructed precautions during ADL tasks. 2=Patient will verbalize/demonstrate understanding of assistive devices/ modifications for ADL. 3=Patient will improve strength/tolerance for activity to enable patient to perform ADL's. OT Education/Plan Discharge Recommendations Plan/Recommendations: Continue POC Treatment Plan/Plan of Care Patient would benefit from OT for education, treatment and training to promote independence in ADL's, mobility, safety and/or upper extremity function for ADL' s. Plan of Care: ADL Retraining, Functional Mobility, UE Funct Exercise/Act Treatment Duration: Jul 31, 2017 Frequency: At least 5 of 7 days/Wk (IRF) Estimated Hrs Per Day: 1.5 hours per day Agreement: Yes Rehab Potential: Good Time/GCodes Start Time: 08:00 Stop Time: 09:00 Total Time Billed (hr/min): 60 Billed Treatment Time 1 visit, ADLx4(60minutes) NEGRITA RILEY OT Jul 21, 2017 10:07
--- NOTE | 2017-07-21 11:04 | Physical Therapy Daily Note ---
PT Daily Note-Current Subjective Pt. so very pleasant and agrees to Rx. States she is pleased to be making progress every day. Pain Numeric Pain Scale: 4 Location: Right Location Body Site: Hip Pain Description: Ache Mental Status Patient Orientation: Normal For Age Attachments: Other-See Comments (AFO RLE) Transfers Functional [place] Measure 0=Not Assessed/NA 4=Minimal Assistance 1=Total Assistance 5=Supervision or Setup 2=Maximal Assistance 6=Modified [place] 3=Moderate Assistance 7=Complete IndependenceIRFPAI Quality Coding Scale 6 Independent with activity with or without an assistive device 5 Patient requires set up or clean up by helper. Patient completes activity by themselves 4 Supervision or touching assist (CGA). [place] provide cues , steadying assist 3 The helper provides less than half the effort to complete the activity 2 The helper provides more than half the effort to complete the activity 1 Dependent. The helper does all the effort to complete an activity 7 Patient refused to complete or attempt activity 9 The patient did not perform the activity before the current illness or injury 88 Not attempted due to Medical conditions or safety concerns Transfers (B, C, W/C) (FIM): 5 Scootin Rollin Supine to/from Sit: 5 Sit to/from Stand: 5 Bed to/from Chair: 5 Weight Bearing Right Lower Extremity: Right Weight Bearing/Tolerated Left Lower Extremity: Left Full Weight Bearing Gait Training Does the Patient Walk?: Yes Gait (FIM): 5 Distance (FIM): 3=150 ft (x2) Gait Level of Assist: 5 Gait Persons Needed: 1 Gait Assistive Device: FWW Wheelchair Training Does the Pt Use a Wheelchair?: No Stair Training Stair Training: Handrails/: 2 handrails Stairs (FIM): 2 #of Steps: 4 Stairs: Pattern: Step to Level of Assist: 4 instruction in sequence Exercises Supine Ex: Quad Set, Rolling, Glut sets, Heel Slides, Short Arc Quads, Scooting , Straight leg raise, Hip abd/add Supine Reps: 15 NuStep Minutes: 10 NuStep Workload: 4 Assessment Current Status: Good Progress PT Short Term Goals Short Term Goals Time Frame: Jul 24, 2017 Transfers (B,C,W/C) (FIM): 5 Gait (FIM): 2 Gait Distance Comment: 50' Gait Level of Assist: 4 Gait Assistive Device: FWW Wheelchair Distance: 200' PT Print Traffic Manager Goals Print Traffic Manager Goals PT Print Traffic Manager Goals Time Frame: Aug 07, 2017 Transfers (B,C,W/C) (FIM): 5 Sit to Lying (QC): 4 Lying-Sitting on Side/Bed(QC): 4 Sit to Stand (QC): 4 Rollin Roll Left to Right (QC): 4 Chair/Wnu-wb-Nwqev Xfer(QC): 4 Car Transfer (QC): 4 Gait (FIM): 5 Distance: 150' Walk 10 feet (QC): 4 Walk 10ft-Uneven Surface(QC): 4 Walk 50ft with 2 Turns (QC): 4 Walk 150 ft (QC): 4 Gait Level of Assist: 5 Stairs (FIM): 2 # of Steps: 4 1 Step (curb) (QC): 4 4 Steps (QC): 4 Stairs Level Of Assist: 4 PT Plan Treatment/Plan Treatment Plan: Continue Plan of Care Treatment Plan: Bed Mobility, Education, Functional Activity [place], Functional Strength, Group Therapy, Gait, Safety, Therapeutic Exercise, Transfers Treatment Duration: Aug 07, 2017 Frequency: At least 5 of 7 days/Wk (IRF) Estimated Hrs Per Day: 1.5 hours per day Patient and/or Family Agrees t: Yes Safety Risks/Education Patient Education: Gait Training, Transfer Techniques, Steps, Correct Positioning Teaching Recipient: Patient Teaching Methods: Demonstration, Discussion Response to Teaching: Verbalize Understanding, Return Demonstration, Reinforcement Needed Time/GCodes Time In: 1000 Time Out: 1100 Total Billed Treatment Time: 60 Total Billed Treatment 1,GT25m,EX20m,FA15m G Codes Necessary: MITRA Hodgson PTA Jul 21, 2017 11:04
[2017-07-21] MEDS: ACETAMINOPHEN 500 MG TAB (TYLENOL) PO PRN (12:29)
--- NOTE | 2017-07-21 12:52 | Progress Note (SOAP) ---
Subjective Time Seen by Provider: 12:52 Subjective/Events-last exam Patient doing better and feeling better. Right hip fracture Objective Exam Vital Signs Date Time Temp Pulse Resp B/P (MAP) Pulse Ox O2 Delivery O2 Flow Rate FiO2 07/21/17 05:08 97.9 94 18 143/69 (93) 94 Room Air 07/20/17 18:00 98.2 67 22 130/68 (88) 94 Room Air I & O 07/21/17 06:59 Intake Total 1350 ml Balance 1350 ml Capillary Refill : Less Than 3 Seconds General Appearance: No Apparent Distress, WD/WN Assessment/Plan Assessment/Plan Assess & Plan/Chief Complaint Fractured right hip. . 07/18/17. Fractured right hip. Patient moving better. . 07/19/17. Fractured right hip. Patient improving. Patient positive. . . Fractured right hip. Patient States since improving. Patient content. . 07/21/17. Fractured right hip. Patient improving Clinical Quality Measures DVT/VTE Risk/Contraindication: Risk Factor Score Per Nursin RFS Level Per Nursing on Admit: 4+=Very High RUDY GOSS DO Jul 21, 2017 12:52
--- NOTE | 2017-07-21 14:16 | Therapy Group Daily Note ---
Therapy Daily Group Note Patient Education Topic Fall Prevention (balance and components of balance) Exercises LE Seated Exercise, UE Exercise Other/Notes Pt. participated in group PT OT session this date. Pt. came and went via [facility] SBA to CGA. Pt. was friendly, introduced herself and was social. Pts. all participated in group exercises in seated position and lead the exercises by reading and demonstrating exercise from cards that were distributed to each pt. Pts. also contributed to education session RE: fall prevention and balance. Demonstrations were done to exhibit components of balance ie vision, vestibular system, strength and flexibility. Pt. was escorted to her room with CGA. Pt. to chair with call sebastian after. Start Time: 13:00 Stop Time: 14:00 Total Billed Treatment Time: 60 Total Billed Treatment 1,GRP MITRA HERNADEZ EXECUTIVE MANAGER Jul 21, 2017 14:16
[2017-07-21 18:26] VITALS: BP 131/76
[2017-07-22 06:16] VITALS: BP 136/72
[2017-07-22] MEDS: ETHOSUXIMIDE 250 MG PO SCH (06:16)
[2017-07-22] MEDS: PANTOPRAZOLE 40 MG (PROTONIX) TAB PO SCH (06:16)
[2017-07-22] MEDS: ASPIRIN 325 MG (5 GR) TABLET PO SCH ×2 (08:44→20:34)
[2017-07-22] MEDS: MESALAMINE DR 400 MG (ASACOL/DELZICOL) TAB/CAPS PO SCH ×2 (08:44→20:33)
[2017-07-22] MEDS: SENNA W/DOCUSATE (SENOKOT S) TABLET PO SCH ×2 (08:44→20:34)
[2017-07-22] MEDS: lisINopril 20 MG (PRINIVIL) TABLET PO SCH (08:44)
[2017-07-22] MEDS: ACETAMINOPHEN 500 MG TAB (TYLENOL) PO PRN (11:43)
[2017-07-22 17:04] VITALS: BP 148/77
[2017-07-22] MEDS: ESTRADIOL 1 MG TAB (ESTRACE) VG SCH (20:34)
[2017-07-22] MEDS: HYDROcodone/APAP 5 MG/325 MG (LORTAB) TAB PO PRN (20:36)
[2017-07-23] MEDS: PANTOPRAZOLE 40 MG (PROTONIX) TAB PO SCH (05:42)
[2017-07-23] MEDS: ETHOSUXIMIDE 250 MG PO SCH (05:42)
[2017-07-23 06:00] VITALS: BP 125/70
[2017-07-23] MEDS ORDERED: ALENDRONATE SODIUM 70 MG (FOSAMAX) TAB PO SCH (06:30)
[2017-07-23] MEDS: MESALAMINE DR 400 MG (ASACOL/DELZICOL) TAB/CAPS PO SCH ×2 (08:04→20:44)
[2017-07-23] MEDS: SENNA W/DOCUSATE (SENOKOT S) TABLET PO SCH ×2 (08:04→20:44)
[2017-07-23] MEDS: ASPIRIN 325 MG (5 GR) TABLET PO SCH ×2 (08:04→20:44)
[2017-07-23] MEDS: lisINopril 20 MG (PRINIVIL) TABLET PO SCH (08:04)
[2017-07-23 17:00] VITALS: BP 136/77
[2017-07-23] MEDS: ACETAMINOPHEN 500 MG TAB (TYLENOL) PO PRN (20:45)
[2017-07-24 06:00] VITALS: BP 147/80
[2017-07-24] MEDS: ETHOSUXIMIDE 250 MG PO SCH (06:03)
[2017-07-24] MEDS: PANTOPRAZOLE 40 MG (PROTONIX) TAB PO SCH (06:03)
[2017-07-24] MEDS: ASPIRIN 325 MG (5 GR) TABLET PO SCH ×2 (09:49→19:58)
[2017-07-24] MEDS: MESALAMINE DR 400 MG (ASACOL/DELZICOL) TAB/CAPS PO SCH ×2 (09:49→19:58)
[2017-07-24] MEDS: lisINopril 20 MG (PRINIVIL) TABLET PO SCH (09:49)
[2017-07-24] MEDS: SENNA W/DOCUSATE (SENOKOT S) TABLET PO SCH ×3 (09:49→19:59)
--- NOTE | 2017-07-24 09:55 | D/C HH Face to Face Order ---
D/C Face to Face Orders Instructions for Patient Patient Instructions/FollowUp: Dr. Kevin Orellana, SHAKE CUTTER ([facility]) on 08/01/17 at 815a Physician to follow Patient: Dr. Kevin Orellana Discharge Diet for Home: Regular Diet Patient Data-Allergies,Ht & Wt Patient Allergies: Uncoded Allergies: bee stings (Allergy, Unknown, 05/18/14) Height (Feet): 5 Height (Inches): 2.00 Weight (Pounds): 151 Weight (Ounces): 3.0 Home Health Need/Face to Face Date of Face to Face: Jul 25, 2017 Clinical Findings: Generalized weakness and fatigue, Pain with ambulation, Unsteady gait I have seen Pt faup-so-bboq: Yes Discharged To: Home Diagnosis/Conditions: R Hip Fx Problems/Diagnosis/Condition: Patient is Homebound due to: [place] fall risk due to instabilty, Muscle weakness , Pain w/ambulation Homebound Status Due to the above stated illness, injury or surgical procedure (medical condition or diagnosis) and associated clinical findings, the patient is homebound because of his/her inability to leave home except with aid of a supportive device and/or person AND leaving the home requires a considerable and taxing effort or is medically contraindicated. Pt req the following assistanc: Walker Home Health Nursing Orders Home Health Services Order: Caustic [place] Shift Superintendent-Evaluate & Treat, Physical Therapy-Evaluate & Treat Therapy Orders Therapy Orders: OT (must have SN or PT order), Physical Therapy Therapy Specific Orders: Eval assistive deivces, Teach enviro modifications/ safety, Gait training, Increase strength/endurance Certify Stmt I certify that this patient is under my care and that I, a nurse practitioner or a physician; a assistant coach working with me, had a face to face encounter that - meets the physician face to face encounter requirements with this patient as dated. I personally scribed for DEYSI DUFF MD) on 07/24/17 at 09:55. Electronically submitted by Daiana Spaulding ([id number]). I personally scribed for DEYSI DUFF MD) on 07/24/17 at 11:11. Electronically submitted by Daiana Spaulding ([id number]). DEYSI DUFF MD Jul 24, 2017 09:55
--- NOTE | 2017-07-24 11:07 | Physical Therapy Daily Note ---
PT Daily Note-Current Subjective Pt. states she wants to DC before Mon. "Im ready" " My is with me all the time" Pain Numeric Pain Scale: 0-No Pain Mental Status Patient Orientation: Normal For Age Attachments: Other-See Comments (AFO) Transfers Functional [place] Measure 0=Not Assessed/NA 4=Minimal Assistance 1=Total Assistance 5=Supervision or Setup 2=Maximal Assistance 6=Modified [place] 3=Moderate Assistance 7=Complete IndependenceIRFPAI Quality Coding Scale 6 Independent with activity with or without an assistive device 5 Patient requires set up or clean up by helper. Patient completes activity by themselves 4 Supervision or touching assist (CGA). [place] provide cues , steadying assist 3 The helper provides less than half the effort to complete the activity 2 The helper provides more than half the effort to complete the activity 1 Dependent. The helper does all the effort to complete an activity 7 Patient refused to complete or attempt activity 9 The patient did not perform the activity before the current illness or injury 88 Not attempted due to Medical conditions or safety concerns Transfers (B, C, W/C) (FIM): 6 Scootin Rollin Roll Left to Right (QC): 6 Supine to/from Sit: 6 Sit to/from Stand: 6 Sit to Lying (QC): 6 Sit to Stand (QC): 6 Chair/Wlz-dg-Pmpvk Xfer(QC): 6 Bed to/from Chair: 6 Car Transfer (QC): 6 Weight Bearing Right Lower Extremity: Right Weight Bearing/Tolerated Left Lower Extremity: Left Full Weight Bearing Gait Training Does the Patient Walk?: Yes Gait (FIM): 5 Distance (FIM): 3=150 ft (200x2) Walk 10 feet (QC): 6 Walk 50 ft with 2 Turns(QC): 5 Walk 150 ft (QC): 5 Walking 10ft/uneven surface-QC: 5 Gait Level of Assist: 5 Gait Persons Needed: 1 Gait Assistive Device: FWW SBA to mod I, is with pt. FT at home Stair Training Stair Training: Handrails/: 2 handrails Stairs (FIM): 5 #of Steps: 4 1 Step (curb) (QC): 5 4 Steps (QC): 5 Stairs: Pattern: Step to Level of Assist: 5 Balance Special Test Comments unsafe , contraindicated Exercises Supine Ex: Ankle pumps, Quad Set, Rolling, Glut sets, Heel Slides, Short Arc Quads, Scooting, Straight leg raise, Hip abd/add Supine Reps: 15 Seated Therapy Exercises: Sit to stand, Long arc quads Seated Reps: 12 NuStep Minutes: 10 NuStep Workload: 3 Assessment Current Status: Good Progress meets goals, increased strength and function, no pain PT Short Term Goals Short Term Goals Time Frame: Jul 24, 2017 Transfers (B,C,W/C) (FIM): 5 Gait (FIM): 2 Gait Distance Comment: 50' Gait Level of Assist: 4 Gait Assistive Device: FWW Wheelchair Distance: 200' PT Intermediate Goals Rail Assembler Goals PT Intermediate Goals Time Frame: Aug 07, 2017 Transfers (B,C,W/C) (FIM): 5 Sit to Lying (QC): 4 Lying-Sitting on Side/Bed(QC): 4 Sit to Stand (QC): 4 Rollin Roll Left to Right (QC): 4 Chair/Zzk-em-Vvuxx Xfer(QC): 4 Car Transfer (QC): 4 Gait (FIM): 5 Distance: 150' Walk 10 feet (QC): 4 Walk 10ft-Uneven Surface(QC): 4 Walk 50ft with 2 Turns (QC): 4 Walk 150 ft (QC): 4 Gait Level of Assist: 5 Stairs (FIM): 2 # of Steps: 4 1 Step (curb) (QC): 4 4 Steps (QC): 4 Stairs Level Of Assist: 4 PT Plan Treatment/Plan Treatment Plan: Continue Plan of Care Treatment Plan: Bed Mobility, Education, Functional Activity Javan, Functional Strength, Group Therapy, Gait, Safety, Therapeutic Exercise, Transfers Treatment Duration: Aug 07, 2017 Frequency: At least 5 of 7 days/Wk (IRF) Estimated Hrs Per Day: 1.5 hours per day Patient and/or Family Agrees t: Yes Safety Risks/Education Patient Education: Gait Training, Transfer Techniques, Correct Positioning Teaching Recipient: Patient, Family Teaching Methods: Demonstration, Discussion Response to Teaching: Verbalize Understanding, Return Demonstration Time/GCodes Time In: 1000 Time Out: 1100 Total Billed Treatment Time: 60 Total Billed Treatment 1,FA30m,EX15m,GT15m G Codes Necessary: No MITRA HERNADEZ PTA Jul 24, 2017 11:07
--- NOTE | 2017-07-24 11:36 | Occupational Ther Daily Note ---
OT Current Status-Daily Note Subjective Pt alert, lying in bed. Pt agreed to therapy. No c/o pain at this time. Mental Status/Objective Patient Orientation: Person, Place, Time, Situation Functional [place] Measure 0=Not Assessed/NA 4=Minimal Assistance 1=Total Assistance 5=Supervision or Setup 2=Maximal Assistance 6=Modified [place] 3=Moderate Assistance 7=Complete [place] ADL-Treatment Pt was able to go from supine to sitting EOB with HOB slightly raised using bedrails. Pt ambulated to bathroom and transferred to toilet using FWW and grabbars. Pt manipulated clothing and cleanses self using FWW and grabbars. Pt transferred into/out of shower using FWW, shower bench and grabbar with supervision. Using shower bench, grabbar and hand held shower,pt able to wash upper body, bilateral upper legs, buttocks, and vikash area. Assist to wash lower legs and feet secondary to hip precautions and no long sponge available. Don pullover gown with set up. Pt used dressing stick to don underwear with SBA for safety during pant hike. Pt doffed socks using dressing stick. Required assist to don compression stockings. Pt donned left shoe using long handle shoe horn after setup, but required mod assist for right shoe and AFO. Increased time for LE dressing tasks. Pt stood at sink to complete own grooming. Functional [place] Measure 0=Not Assessed/NA 4=Minimal Assistance 1=Total Assistance 5=Supervision or Setup 2=Maximal Assistance 6=Modified [place] 3=Moderate Assistance 7=Complete IndependenceIRFPAI Quality Coding Scale 6 Independent with activity with or without an assistive device 5 Patient requires set up or clean up by helper. Patient completes activity by themselves 4 Supervision or touching assist (CGA). [place] provide cues , steadying assist 3 The helper provides less than half the effort to complete the activity 2 The helper provides more than half the effort to complete the activity 1 Dependent. The helper does all the effort to complete an activity 7 Patient refused to complete or attempt activity 9 The patient did not perform the activity before the current illness or injury 88 Not attempted due to Medical conditions or safety concerns Eating (FIM): 6 (Pt able to open containers/packages by self then uses regular utensils to feed self.) Eating (QC): 6 Grooming (FIM): 6 Oral Hygiene (QC): 6 Bathing (FIM): 4 Bathing Location: L Arm, R Arm, L Upper Leg, R Upper Leg, Chest, Abdomen, Buttocks, Perineal Area Shower/Bathe Self (QC): 3 Upper Body (FIM): 5 Upper Body Dressing (QC): 5 Lower Body Dressing (FIM): 4 Lower Body Dressing (QC): 3 On/Off Footwear (QC): 3 Toileting (FIM): 6 Toileting Hygiene (QC): 6 Toilet/Commode Transfer (FIM): 6 Toilet Transfer (QC): 4 Shower Transfer(FIM): 5 Other Treatment Pt ambulated to therapy gym with FWW. Pt completed arm bike 15 min duration at 20 polk resistance to increase strength and activity tolerance for daily functional tasks. Pt then completed resistive clothespins, 25 each hand, to increase patient safety sitter and pinch strength. After therapy, pt sitting in room with call light/phone in reach. All needs met in room. OT Short Term Goals Short Term Goals Time Frame: Jul 24, 2017 Eating(FIM): 6 Grooming(FIM): 5 Bathing(FIM): 4 Upper Body Dressing(FIM): 5 Lower Body Dressing(FIM): 4 Toileting(FIM): 5 Transfers (B,C,W/C) (FIM): 5 Toilet/Commode Transfer(FIM): 5 Shower Transfer(FIM): 4 Additional Short Term Goals: 1-Demonstrate ADL Tasks, 2-Verbalize Understanding , 3-ImproveStrength/Javan 1=Demonstrate adherence to instructed precautions during ADL tasks. 2=Patient will verbalize/demonstrate understanding of assistive devices/ modifications for ADL. 3=Patient will improve strength/tolerance for activity to enable patient to perform ADL's. OT Chcf Goals Chcf Goals Time Frame: Jul 31, 2017 Eating (FIM): 6 (met-07/24/2017) Eating (QC): 6 (met-07/24/2017) Groomin (met-07/24/2017) Oral Hygiene (QC): 6 (met-07/24/2017) Bathing(FIM): 5 (not met) Shower/Bathe Self (QC): 5 (not met) Upper Body Dressing(FIM): 6 (not met) Upper Body Dressing (QC): 6 (not met) Lower Body Dressing(FIM): 6 (not met) Lower Body Dressing (QC): 6 (not met) On/Off Footwear (QC): 6 (not met) Toileting(FIM): 6 (met-07/24/2017) Toileting Hygiene (QC): 6 (met-07/24/2017) Transfers (B,C,W/C) (FIM): 6 (not met) Toilet/Commode Transfer(FIM): 6 (not met) Toilet/Commode Transfer (QC): 6 (not met) Shower Transfer(FIM): 5 (met-07/24/2017) Additional Goals: 1-Demonstrate ADL Tasks, 2-Verbalize Understanding, 3- ImproveStrength/Javan 1=Demonstrate adherence to instructed precautions during ADL tasks. 2=Patient will verbalize/demonstrate understanding of assistive devices/ modifications for ADL. 3=Patient will improve strength/tolerance for activity to enable patient to perform ADL's. OT Education/Plan Discharge Recommendations Plan/Recommendations: Continue POC Treatment Plan/Plan of Care Patient would benefit from OT for education, treatment and training to promote independence in ADL's, mobility, safety and/or upper extremity function for ADL' s. Plan of Care: ADL Retraining, Functional Mobility, UE Funct Exercise/Act Treatment Duration: Jul 31, 2017 Frequency: At least 5 of 7 days/Wk (IRF) Estimated Hrs Per Day: 1.5 hours per day Agreement: Yes Rehab Potential: Good Time/GCodes Start Time: 07:00 Stop Time: 08:30 Total Time Billed (hr/min): 90 Billed Treatment Time 1 visit-ADL 4 (60 min) EX 2 (30 min) PHIL ZIMMERMAN Jul 24, 2017 11:36
[2017-07-24] MEDS: ACETAMINOPHEN 500 MG TAB (TYLENOL) PO PRN ×2 (13:38→19:59)
--- NOTE | 2017-07-24 14:42 | Physical Therapy Daily Note ---
PT Daily Note-Current Subjective Pt. agrees to Rx. States she is thrilled to be going home tomorrow and wonders how quickly she can be gone in the morning. Pt. 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 and how she has had many falls, more as she ages and that she has been gibran many times but now may use the FWW FT for added safety Pain Numeric Pain Scale: 0-No Pain Mental Status Patient Orientation: Normal For Age Attachments: Other-See Comments (AFO) Transfers Functional [place] Measure 0=Not Assessed/NA 4=Minimal Assistance 1=Total Assistance 5=Supervision or Setup 2=Maximal Assistance 6=Modified [place] 3=Moderate Assistance 7=Complete IndependenceIRFPAI Quality Coding Scale 6 Independent with activity with or without an assistive device 5 Patient requires set up or clean up by helper. Patient completes activity by themselves 4 Supervision or touching assist (CGA). [place] provide cues , steadying assist 3 The helper provides less than half the effort to complete the activity 2 The helper provides more than half the effort to complete the activity 1 Dependent. The helper does all the effort to complete an activity 7 Patient refused to complete or attempt activity 9 The patient did not perform the activity before the current illness or injury 88 Not attempted due to Medical conditions or safety concerns All TRFs Mod I Weight Bearing Right Lower Extremity: Right Weight Bearing/Tolerated Left Lower Extremity: Left Full Weight Bearing Gait Training Does the Patient Walk?: Yes Gait (FIM): 6 Distance (FIM): 3=150 ft (200x3) Walk 10 feet (QC): 6 Walk 50 ft with 2 Turns(QC): 6 Walk 150 ft (QC): 6 Walking 10ft/uneven surface-QC: 6 Gait Level of Assist: 6 Gait Persons Needed: 0 Gait Assistive Device: FWW Exercises Supine Ex: Bridging, Ankle pumps, Quad Set, Rolling, Glut sets, Heel Slides, Short Arc Quads, Scooting, Straight leg raise (x7only on right), Hip abd/add, Bicep Curls Supine Reps: 20 Seated Therapy Exercises: Ankle pumps, Sit to stand, Long arc quads Seated Reps: 10 Assessment Current Status: Excellent Progress PT Short Term Goals Short Term Goals Time Frame: Jul 24, 2017 Transfers (B,C,W/C) (FIM): 5 Gait (FIM): 2 Gait Distance Comment: 50' Gait Level of Assist: 4 Gait Assistive Device: FWW Wheelchair Distance: 200' PT Snf Goals Unit Manager Rn Goals PT Unit Manager Rn Goals Time Frame: Aug 07, 2017 Transfers (B,C,W/C) (FIM): 5 Sit to Lying (QC): 4 Lying-Sitting on Side/Bed(QC): 4 Sit to Stand (QC): 4 Rollin Roll Left to Right (QC): 4 Chair/Hpw-xc-Iwgzy Xfer(QC): 4 Car Transfer (QC): 4 Gait (FIM): 5 Distance: 150' Walk 10 feet (QC): 4 Walk 10ft-Uneven Surface(QC): 4 Walk 50ft with 2 Turns (QC): 4 Walk 150 ft (QC): 4 Gait Level of Assist: 5 Stairs (FIM): 2 # of Steps: 4 1 Step (curb) (QC): 4 4 Steps (QC): 4 Stairs Level Of Assist: 4 PT Plan Treatment/Plan Treatment Plan: Continue Plan of Care Treatment Plan: Bed Mobility, Education, Functional Activity Javan, Functional Strength, Group Therapy, Gait, Safety, Therapeutic Exercise, Transfers Treatment Duration: Aug 07, 2017 Frequency: At least 5 of 7 days/Wk (IRF) Estimated Hrs Per Day: 1.5 hours per day Patient and/or Family Agrees t: Yes Safety Risks/Education Patient Education: Gait Training, Transfer Techniques, Correct Positioning, Safety Issues Teaching Recipient: Patient Teaching Methods: Demonstration, Discussion Response to Teaching: Verbalize Understanding, Return Demonstration, Reinforcement Needed Time/GCodes Time In: 1405 Time Out: 1435 Total Billed Treatment Time: 30 Total Billed Treatment 1,EX15m,GT15m G Codes Necessary: MITRA Hodgson WATER SYSTEMS ENGINEER Jul 24, 2017 14:42
--- NOTE | 2017-07-24 15:07 | PM & R (SOAP) Progress Note ---
Subjective Time Seen by Provider: 14:30 Subjective/Events-last exam Patient was seen in her room this afternoon Discussed case with SW Patient Modified Independent for transfers.Has progressed well Objective Exam Last Set of Vital Signs Vital Signs Date Time Temp Pulse Resp B/P (MAP) Pulse Ox O2 Delivery O2 Flow Rate FiO2 07/24/17 06:00 97.4 94 17 147/80 (102) 95 Room Air Capillary Refill : Less Than 3 Seconds I&O Intake and Output 07/24/17 00:00 Intake Total 1080 ml Balance 1080 ml Intake Oral 1080 ml # Voids 6 # Bowel Movements 3 General: Alert, Oriented X3, Cooperative, No Acute Distress HEENT: Atraumatic, PERRLA, EOMI, Mucous Memb Moist/[place] Neck: Supple, No JVD Lungs: Clear to Auscultation Heart: Regular Rate Abdomen: Normal Bowel Sounds, Soft, No Tenderness Extremities: No Edema Neuro: Other (RT sided weaknes and at left hip Incision healing well) Assessment/Plan Assessment left Hip frx s/p fall s/p ORIF OSH WBAT CP affecting the rt side OA s/p Rt TKR in past HTN controlled with meds GERD on meds Plan Continue PT/OT/Pain management Discharge set for 07-25-17 to home with spouse and HHC F/U with ortho and PCP on an outpatient basis DEYSI DUFF MD Jul 24, 2017 15:07
[2017-07-24 18:00] VITALS: BP 138/73
--- NOTE | 2017-07-24 18:24 | Progress Note (SOAP) ---
Subjective Time Seen by Provider: 18:23 Subjective/Events-last exam Patient excited about going home tomorrow. Right hip fracture. Patient is improving much Focused Exam Respiratory: Normal Breath Sounds, No Accessory Muscle Use, No Respiratory Distress Objective Exam Vital Signs Date Time Temp Pulse Resp B/P (MAP) Pulse Ox O2 Delivery O2 Flow Rate FiO2 07/24/17 18:00 98.1 88 16 138/73 (94) 93 Room Air 07/24/17 06:00 97.4 94 17 147/80 (102) 95 Room Air I & O 07/24/17 07:00 Intake Total 880 ml Balance 880 ml Capillary Refill : Less Than 3 Seconds General Appearance: No Apparent Distress, Thin HEENT: Normal ENT Inspection Neck: Normal Inspection Respiratory: No Accessory Muscle Use, No Respiratory Distress Assessment/Plan Assessment/Plan Assess & Plan/Chief Complaint Fractured right hip. . 07/18/17. Fractured right hip. Patient moving better. . 07/19/17. Fractured right hip. Patient improving. Patient positive. . . Fractured right hip. Patient States since improving. Patient content. . 07/21/17. Fractured right hip. Patient improving. . 07/24/17. Fractured right hip area Patient be discharged tomorrow. Patient happy. Patient improved Clinical Quality Measures DVT/VTE Risk/Contraindication: Risk Factor Score Per Nursin RFS Level Per Nursing on Admit: 4+=Very High RUDY GOSS DO Jul 24, 2017 18:24
[2017-07-24] MEDS ORDERED: ACHD5005 PO (18:32)
[2017-07-24] MEDS ORDERED: ACET-77 PO (18:32)
[2017-07-24] MEDS ORDERED: ASPI-808 PO (18:32)
[2017-07-24] MEDS ORDERED: SENN-20 PO (18:32)
[2017-07-25 06:14] VITALS: BP 136/70
[2017-07-25] MEDS: PANTOPRAZOLE 40 MG (PROTONIX) TAB PO SCH (06:15)
[2017-07-25] MEDS: ETHOSUXIMIDE 250 MG PO SCH (06:16)
[2017-07-25] MEDS: lisINopril 20 MG (PRINIVIL) TABLET PO SCH (08:02)
[2017-07-25] MEDS: MESALAMINE DR 400 MG (ASACOL/DELZICOL) TAB/CAPS PO SCH (08:02)
[2017-07-25] MEDS: ASPIRIN 325 MG (5 GR) TABLET PO SCH (08:02)
[2017-07-25] MEDS: SENNA W/DOCUSATE (SENOKOT S) TABLET PO SCH (08:03)
--- NOTE | 2017-07-25 09:51 | PM & R (SOAP) Progress Note ---
Subjective Time Seen by Provider: 09:30 Subjective/Events-last exam Patient was seen in her room this AM Has progressed well Objective Exam Last Set of Vital Signs Vital Signs Date Time Temp Pulse Resp B/P (MAP) Pulse Ox O2 Delivery O2 Flow Rate FiO2 07/25/17 06:14 97.8 94 18 136/70 (92) 95 Room Air Capillary Refill : Less Than 3 Seconds I&O Intake and Output 07/25/17 00:00 Intake Total 600 ml Balance 600 ml Intake Oral 600 ml # Voids 8 # Bowel Movements 3 General: Alert, Oriented X3, Cooperative, No Acute Distress HEENT: Atraumatic, PERRLA, EOMI, Mucous Memb Moist/[place] Neck: Supple, No JVD Lungs: Clear to Auscultation Heart: Regular Rate Abdomen: Normal Bowel Sounds, Soft, No Tenderness Extremities: No Edema Neuro: Other (RT sided weaknes and at left hip Incision healing well) Assessment/Plan Assessment left Hip frx s/p fall s/p ORIF OSH WBAT CP affecting the rt side OA s/p Rt TKR in past HTN controlled with meds GERD on meds Plan Discharge today to home with HHC and spouse F/U with PCP and Ortho Current meds reviewed See orders. DEYSI DUFF MD Jul 25, 2017 09:51
--- NOTE | 2017-07-25 10:16 | Therapy Team Discharge Summary ---
Therapy Discharge Summary Discharge Recommendations Date of Discharge Therapy D/C Recommendations: Home w/ Family Support, Occupational Therapy Home Care Physical Therapy Patient came to rehab following a right hip fracture. Upon evaluation patient performs bed mobility with min assist (needs assist with right leg getting into and out of bed), sit to stand with min assist, transfers with min assist including car transfer, ambulated 20'x2 with min assist using a rolling walker. Patient has been performing bed mobility and transfer training, balance and endurance training, functional strengthening, stair training, gait training, and education. Patient has made good progress and has met all of her continuous churn buttermaker goals. Now, patient performs bed mobility and transfers with mod I, car transfer with mod I, ambulates 200' with a rolling walker with mod I to SBA ( including 50' with at least 2 turns of 90 degrees and 10' over an uneven surface ), and can go up and down 4 steps using 2 handrails with SBA. Patient is being discharged from this facility today and will be discharged from PT at this time. Occupational Therapy Decreased Activ Tolerance, Impaired Bed Mobility, Impaired I ADL's, Impaired Self-Care Skills, Restricted Funct UE ROM PT Disc Ruler Operator Goals Custodial Goals PT Disc Ruler Operator Goals Time Frame: Aug 07, 2017 Transfers (B,C,W/C) (FIM): 5 Roll Left to Right (QC): 4 Sit to Lying (QC): 4 Lying-Sitting on Side/Bed(QC): 4 Sit to Stand (QC): 4 Chair/Bbl-ib-Lylmg Xfer(QC): 4 Car Transfer (QC): 4 Gait (FIM): 5 Distance: 150' Walk 10 feet (QC): 4 Walk 10ft-Uneven Surface(QC): 4 Walk 50ft with 2 Turns (QC): 4 Walk 150 ft (QC): 4 Gait Level of Assist: 5 Stairs (FIM): 2 # of Steps: 4 1 Step (curb) (QC): 4 4 Steps (QC): 4 Stairs Level Of Assist: 4 OT Custodial Goals Custodial Goals Time Frame: Jul 31, 2017 Eating (FIM): 6 (met-07/24/2017) Eating (QC): 6 (met-07/24/2017) Oral Hygiene (QC): 6 (met-07/24/2017) Grooming(FIM): 6 (met-07/24/2017) Bathing(FIM): 5 (not met) Shower/Bathe Self (QC): 5 (not met) Upper Body Dressing(FIM): 6 (not met) Upper Body Dressing (QC): 6 (not met) Lower Body Dressing(FIM): 6 (not met) Lower Body Dressing (QC): 6 (not met) On/Off Footwear (QC): 6 (not met) Toileting(FIM): 6 (met-07/24/2017) Toileting Hygiene (QC): 6 (met-07/24/2017) Transfers (B,C,W/C) (FIM): 6 (not met) Toilet/Commode Transfer(FIM): 6 (not met) Toilet/Commode Transfer (QC): 6 (not met) Shower Transfer(FIM): 5 (met-07/24/2017) Additional Goals: 1-Demonstrate ADL Tasks, 2-Verbalize Understanding, 3- ImproveStrength/Javan 1=Demonstrate adherence to instructed precautions during ADL tasks. 2=Patient will verbalize/demonstrate understanding of assistive devices/ modifications for ADL. 3=Patient will improve strength/tolerance for activity to enable patient to perform ADL's. YELITZA LUU PT Jul 25, 2017 10:16
[2017-07-25 10:52] VITALS: BP 136/70
== END 2017-07-25 10:50 | disposition home health service (06) | DRG 561 ==
PROVIDERS: ADMIT Physical Medicine & Rehabilitation; ATTEND Physical Medicine & Rehabilitation
DX: S72.001D Fracture of unspecified part of neck of right femur, subsequent encounter for closed fracture with routine healing (principal); Z96.641 Presence of right artificial hip joint; G80.8 Other cerebral palsy; I10 Essential (primary) hypertension; K21.9 Gastro-esophageal reflux disease without esophagitis; G47.30 Sleep apnea, unspecified; K44.9 Diaphragmatic hernia without obstruction or gangrene; W19.XXXD Unspecified fall, subsequent encounter; Y92.238 Other place in hospital as the place of occurrence of the external cause
CPT/HCPCS: 94664

== ENCOUNTER 2017-09-07 10:57 | Outpatient (RCR) | payer MEDICARE ==
[~2017-09-07 10:57] MED LIST changes: +ACET-77 PO; +ACHD5005 PO; +ASPI-808 PO; +ASPI-983 PO; +CLOT15CR6 TP; +ESTR0.5T VG; +ETHO250C6 PO; +LISI-552 PO; +MESA400C2 PO; +SENN-20 PO
== END 2017-09-07 12:26 | disposition home or self-care (01) ==
PROVIDERS: ATTEND Orthopaedic Surgery
DX: Z47.1 Aftercare following joint replacement surgery (principal); Z96.641 Presence of right artificial hip joint

== ENCOUNTER → 2020-03-23 | Outpatient (CLI) | payer MEDICARE ==
[~2020-03-23] MED LIST changes: -ACET-77 PO; +ACET-78 PO; +ALEN70TA69 PO; +ASPI-1238 PO; -ASPI-983 PO; -MESA400C2 PO; +MSL400TEC PO; +OMEP20CA18 PO
--- NOTE | 2020-03-23 12:22 | Diagnostic Imaging Report ---
PROCEDURE: US Venous Lower Ext Jesus. INDICATION: Bilateral lower extremity swelling. TECHNIQUE: Multiple real-time grayscale images were obtained over the lower extremities in various projections, bilaterally. Additional duplex Doppler and color Doppler images were also obtained. CORRELATION STUDY: None FINDINGS: Color and grayscale sonographic images demonstrate no intraluminal defect within the visualized portion of the common femoral, superficial femoral and/or popliteal veins to suggest thrombus formation. These vessels demonstrate normal response to compression and augmentation. No soft tissue fluid collection. IMPRESSION: 1. Negative for deep venous thrombosis of either leg. Dictated by: Dictated on workstation # [id number]
== END ==
LOC: CARD 10:30
PROVIDERS: ATTEND Nurse Practitioner
DX: I51.7 Cardiomegaly (principal); I35.1 Nonrheumatic aortic (valve) insufficiency; M79.662 Pain in left lower leg; M79.661 Pain in right lower leg; R60.0 Localized edema
CPT/HCPCS: 93306; 93970

== ENCOUNTER 2020-10-28 08:53 | Outpatient (CLI) | payer MEDICARE ==
[~2020-10-28 08:53] MED LIST changes: -ALEN70TA69 PO; +ALEN70TA80 PO; -LISI-552 PO; +LISI20TA26 PO
== END 2020-10-28 09:17 ==
LOC: SLEEP 08:53
PROVIDERS: ATTEND Family Medicine
DX: G47.33 Obstructive sleep apnea (adult) (pediatric) (principal); G47.10 Hypersomnia, unspecified; I10 Essential (primary) hypertension
CPT/HCPCS: G0399

== ENCOUNTER → 2020-12-21 | Outpatient (CLI) | payer MEDICARE | LOC: LABNPT 04:06 | PROVIDERS: ATTEND Family Medicine | DX: Z20.822 Contact with and (suspected) exposure to COVID-19 (principal) | CPT/HCPCS: 87635 ==

== ENCOUNTER 2020-12-23 20:08 | Outpatient (CLI) | payer MEDICARE | END 2020-12-24 07:00 | disposition home or self-care (01) | LOC: SLEEP 20:08 | PROVIDERS: ATTEND Family Medicine | DX: G47.33 Obstructive sleep apnea (adult) (pediatric) (principal) | CPT/HCPCS: 95811 ==

== ENCOUNTER → 2022-07-26 | Outpatient (CLI) | payer MEDICARE ==
--- NOTE | 2022-07-26 08:54 | Diagnostic Imaging Report ---
INDICATION: 82-year-old postmenopausal female with history of right hip replacement. Bone density screening assessment. COMPARISON: None FINDINGS: AP Spine L1-L4: [BMD (g/cm2): 1.116] [T-Score: -0.7] [Z-Score: 1.3] [BMD Previous: NA] [BMD % Change: NA] LT Hip Neck: [BMD (g/cm2): 0.662] [T-Score: -2.7] [Z-Score: -0.4] LT Hip Total: [BMD (g/cm2):0.797] [T-Score:-1.7] [Z-Score: 0.5] [BMD Previous: NA] [BMD % Change: NA] RT Hip Neck: [BMD (g/cm2):NA] [T-Score:NA] [Z-Score:NA] RT Hip Total: [BMD (g/cm2):NA] [T-score:NA] [Z-Score:NA] [BMD Previous:NA] [BMD % Change:NA] *Indicates significant change from prior examination based on 95% confidence level. World Health Organization criteria for BMD interpretation classify patients as Normal (T-score at or above -1.0), Osteopenic (T-score between -1.0 and -2.5) or Osteoporotic (T-score at or below -2.5). LIMITATIONS AND MODIFICATION: None. FRACTURE RISK (FRAX SCORE): The ten year probability of (%): Major Osteoporotic Fracture: [30.2] Hip Fracture: [11.0] IMPRESSION: 1. Osteopenia (Low bone mass). 2. Baseline examination. 3. See below National Osteoporosis Foundation guidelines on when to potentially initiate pharmacologic therapy. Based on the National Osteoporosis Foundation Guidelines, pharmacologic treatment should be initiated in any of the following, unless clinical conditions suggest otherwise: * Any patient with prior fragility fracture of the hip or vertebrae. A spine fracture indicates 5X risk for subsequent spine fracture and 2X risk for subsequent hip fracture. * Osteoporosis (T-score <-2.5). * Postmenopausal women and men age 50 and older with low bone mass/osteopenia (T-score between -1.0 and -2.5) by DXA and 10-year major osteoporotic fracture greater than 20% or a 10-year probability of hip fracture greater than 3%. These fracture risks are supplied above in the FRAX score, if applicable. * Clinician judgement and/or patient preferences may indicate treatment for people with 10-year fracture probabilities above or below these levels. Dictated by: Dictated on workstation # [id number]
== END ==
LOC: RAD 08:30
PROVIDERS: ATTEND Internal Medicine Endocrinology, Diabetes & Metabolism
DX: M85.80 Other specified disorders of bone density and structure, unspecified site (principal); M81.0 Age-related osteoporosis without current pathological fracture; E55.9 Vitamin D deficiency, unspecified
CPT/HCPCS: 77080

== ENCOUNTER 2022-10-11 05:32 | Outpatient (CLI) | payer MEDICARE ==
[~2022-10-11] VITALS: Ht 152.4 cm; Wt 60.0 kg
== END 2022-10-12 15:27 | disposition home or self-care (01) ==
LOC: PREOP 05:32
PROVIDERS: ATTEND Specialist
DX: Z01.818 Encounter for other preprocedural examination (principal)

== ENCOUNTER 2022-10-14 08:06 | Day surgery (SDC) | payer MEDICARE ==
[~2022-10-14] VITALS: Ht 152.4 cm; Wt 60.0 kg
--- NOTE | 2022-10-14 08:28 | Ophthalmologist Pre-Op Note ---
Pre-Operative Progress Note H&P Reviewed The H&P was reviewed, patient examined and no changes noted. Date H&P Reviewed: Oct 14, 2022 Time H&P Reviewed: 08:28 Pre-Op Dx Secondary Cataract, Bilateral Eyes GLADYS SMITH MD Oct 14, 2022 08:28
[2022-10-14] MEDS ORDERED: TROPICAMIDE 1% OPH SOLN (MYDRIACYL) 15 ML BTL OU PRN (08:30)
[2022-10-14] MEDS ORDERED: PHENYLEPHRINE 10% OPHTH (NEO-SYN) 5 ML BTL OU PRN (08:30)
[2022-10-14] MEDS: TETRACAINE 0.5% OPHTH SOLN 4 ML BTL (SINGLE DOSE ONLY) OU PRN ×2 (08:32→08:36)
[2022-10-14 08:33] VITALS: BP 141/81
--- NOTE | 2022-10-14 09:09 | Ophthalmology Operative Report ---
YAG Capsulotomy PREOPERATIVE DIAGNOSIS: Secondary Cataract Bilateral POSTOPERATIVE DIAGNOSIS: Secondary Cataract Bilateral PROCEDURE: YAG Capsulotomy, Bilateral SURGEON: Delgado Smith ANESTHESIA: Topical anesthesia COMPLICATIONS: None ESTIMATED BLOOD LOSS: Minimal DESCRIPTION OF PROCEDURE: After proper informed consent was obtained, the patient's, a 82 female , received one drop of Tropicamide and one drop of Tetracaine in each eye. The patient was then placed at the YAG laser and using a power of [4.2 ] millijoules and bursts [ 17] right eye and [21 ] left eye were used to fashion a central capsulotomy. The patient tolerated the procedure well without complications. DELGADO SMITH MD Oct 14, 2022 09:09
== END 2022-10-14 09:15 | disposition home or self-care (01) ==
LOC: SDC 08:06
PROVIDERS: ATTEND Specialist
DX: H26.40 Unspecified secondary cataract (principal)

== ENCOUNTER 2023-02-24 08:45 | Outpatient (CLI) | payer MEDICARE ==
[~2023-02-24] VITALS: Ht 149.9 cm; Wt 60.0 kg
[2023-02-24 09:00] VITALS: BP 130/73
[2023-02-24] MEDS ORDERED: DENOSUMAB 60 MG/1 ML (PROLIA) SQ SCH (09:00)
== END 2023-02-24 09:30 | disposition home or self-care (01) ==
LOC: SDC 08:45
PROVIDERS: ATTEND Nurse Practitioner Family
DX: M81.0 Age-related osteoporosis without current pathological fracture (principal)
CPT/HCPCS: 96372